=== PATIENT | female | born 1970 | race African-American/Black ===

== ENCOUNTER 2016-12-11 06:54 | Inpatient (IN) | payer BC ==
[2016-12-11] MEDS ORDERED: morphine CARPU-JECT 2 MG/1 ML DISP.SYRIN IVPUSH ONE ×2 (07:57→10:32)
[2016-12-11] MEDS ORDERED: SODIUM CHLORIDE 1,000 ML IV STA ×2 (07:57→12:55)
--- NOTE | 2016-12-11 07:57 | PDOC ---
History of Present Illness - General History Source: Patient, Old Records Exam Limitations: No Limitations - History of Present Illness Initial Comments: 12/11/16 08:11 Patient is a 46 year old female, past medical history of HTN nd sarcoidosis awho presents to the ED with right sided abdominal pain and vomiting for 8 hours. The patient reports 4 episodes of vomiting most recently one hour before presenting to the ER. She states that at 11 pm last night she felt abdominal pain that she thought might be hunger or gas. She ate a bowl of cereal to treat symptoms with no relief of pain and vomited up the cereal at midnight. The patient reports that her pain is an 8/10 in severity and exacerbated on palpation and by movement. The patient reports associated nausea and constipation. She denies any similar symptoms in the past and/or history of gallstones. <Glenroy Live - Last Filed: 12/11/16 10:11> <Lizet Brooks - Last Filed: 12/11/16 14:30> - General Chief Complaint: Pain, Acute Stated Complaint: ABDOMINAL PAIN Time Seen by Provider: 12/11/16 07:39 Past History <Glenroy Live - Last Filed: 12/11/16 10:11> - Past Medical History HTN: Yes Other medical history: sarcoidosis - Psycho/Social/Smoking Cessation Hx Suicidal Ideation: No Smoking History: Never smoked <Lizet Brooks - Last Filed: 12/11/16 14:30> - Past Medical History Allergies/Adverse Reactions: Allergies Allergy/AdvReac Type Severity Reaction Status Date / Time No Known Allergies Allergy Verified 12/11/16 07:09 Home Medications: Ambulatory Orders Lisinopril/Hydrochlorothiazide [Lisinopril-Hctz 10-12.5 mg Tab] 1 each PO DAILY 12/11/16 Review of Systems - Review of Systems Able to Perform ROS?: Yes Comments:: 12/11/16 08:12 GENERAL/CONSTITUTIONAL: No fever or chills. No weakness. HEAD, EYES, EARS, NOSE AND THROAT: No change in vision. No ear pain or discharge. No sore throat. CARDIOVASCULAR: No chest pain or shortness of breath. RESPIRATORY: No cough, wheezing, or hemoptysis. GASTROINTESTINAL: Yes nausea, vomiting, constipation, abdominal pain. No diarrhea. GENITOURINARY: No dysuria, frequency, or change in urination. MUSCULOSKELETAL: No joint or muscle swelling or pain. No neck or back pain. SKIN: No rash NEUROLOGIC: No headache, vertigo, loss of consciousness, or change in strength/ sensation. ENDOCRINE: No increased thirst. No abnormal weight change. HEMATOLOGIC/LYMPHATIC: No anemia, easy bleeding, or history of blood clots. ALLERGIC/IMMUNOLOGIC: No hives or skin allergy. <Glenroy Live - Last Filed: 12/11/16 10:11> *Physical Exam - Vital Signs Last Vital Signs Temp Pulse Resp BP Pulse Ox 98.5 F 76 19 175/101 98 12/11/16 07:11 12/11/16 07:11 12/11/16 07:11 12/11/16 07:11 12/11/16 07:11 - Physical Exam Comments: 12/11/16 08:12 GENERAL: Awake, alert, and fully oriented, in no acute distress HEAD: No signs of trauma EYES: PERRLA, EOMI, sclera anicteric, conjunctiva clear ENT: Auricles normal inspection, hearing grossly normal, nares patent, oropharynx clear without exudates. Dry Mucous membranes NECK: Normal ROM, supple, no lymphadenopathy, JVD, or masses LUNGS: Breath sounds equal, clear to auscultation bilaterally. No wheezes, and no crackles HEART: Regular rate and rhythm, normal S1 and S2, no murmurs, rubs or gallops ABDOMEN: (+)RUQ tenderness some guarding no rebound EXTREMITIES: Normal range of motion, no edema. No clubbing or cyanosis. No cords, erythema, or tenderness NEUROLOGICAL: Cranial nerves II through XII grossly intact. Normal speech SKIN: Warm, Dry, normal turgor, no rashes or lesions noted. <Glenroy Live - Last Filed: 12/11/16 10:11> - Vital Signs Last Vital Signs Temp Pulse Resp BP Pulse Ox 98.5 F 76 19 175/101 98 12/11/16 07:11 12/11/16 07:11 12/11/16 07:11 12/11/16 07:11 12/11/16 07:11 <Lizet Brooks - Last Filed: 12/11/16 14:30> ED Treatment Course - LABORATORY CBC & Chemistry Diagram: 12/11/16 07:56 12/11/16 07:56 - RADIOLOGY Radiograph Interpretation: 12/11/16 10:11 EXAM#: TYPE/EXAM: RESULT: [id number] US/ABDOMEN US -LIMITED ABDOMINAL ULTRASOUND WITH ATTENTION TO THE RIGHT UPPER QUADRANT: Clinical history: Right upper quadrant pain. Procedure: Grayscale ultrasound was utilized to evaluate the abdomen. Color Doppler was utilized to assist evaluation of cystic and vascular structures. Findings: The liver is mildly echogenic consistent with fatty infiltration, and measures 18 cm in longitudinal dimension. No hepatic mass is identified. There is no intrahepatic biliary ductal dilatation. The common bile duct measures 2.7 mm. The gallbladder contains multiple stones. There is no gallbladder wall thickening or pericholecystic fluid identified. The pancreas is unremarkable. The spleen is unremarkable. The right kidney is unremarkable. Visualized abdominal aorta demonstrates no evidence of abdominal aortic aneurysm. Visualized IVC is unremarkable. Main portal vein demonstrates normal directional flow and normal waveform pattern. IMPRESSION: Multiple gallstones. Reported By: Scotty Rosas MD 12/11/16 1008 <Glenroy Live - Last Filed: 12/11/16 10:11> - LABORATORY CBC & Chemistry Diagram: 12/11/16 07:56 12/11/16 07:56 <Lizet Brooks - Last Filed: 12/11/16 14:30> Medical Decision Making - Medical Decision Making 12/11/16 10:54 Sono results d/w patient. She still has some pain and nausea. Will give additional medication and reassess. If unable to tolerate PO, will admit. If able, will DC home with outpatient surg f/u. 12/11/16 12:54 Pt unable to tolerate PO challenge, still having pain. Will give additional morphine. Will admit to hospitalist service. <Lizet Brooks - Last Filed: 12/11/16 14:30> *DC/Admit/Observation/Transfer - Attestations Scribe Attestion: 12/11/16 08:12 Documentation prepared by Glenroy Live, acting as medical billing supervisor for Lizet Brooks MD. <Glenroy Live - Last Filed: 12/11/16 10:11> - Discharge Dispostion Admit: Yes <Lizet Brooks - Last Filed: 12/11/16 14:30> Diagnosis at time of Disposition: Biliary colic - Discharge Dispostion Condition at time of disposition: Stable - Referrals Referrals: Sara Orlando [Primary Care Provider] - Juan Glvoer [Staff Physician] - - Patient Instructions Printed Discharge Instructions: DI for Biliary Colic
[2016-12-11] MEDS ORDERED: morphine CARPU-JECT 2 MG/1 ML DISP.SYRIN ONE ×2 (08:06→10:33)
[2016-12-11 08:14] LABS: URINE APPEARANCE CLEAR; URINE BILIRUBIN NEGATIVE (NEGATIVE); URINE BLOOD NEGATIVE (NEGATIVE); URINE COLOR LTYELLOW; URINE GLUCOSE (UA) 1+ (NEGATIVE); URINE KETONE NEGATIVE (NEGATIVE); URINE LEUK ESTERASE NEGATIVE (NEGATIVE); URINE NITRITE NEGATIVE (NEGATIVE); URINE UROBILINOGEN NEGATIVE E.U./dl (0.2-1.0)
[2016-12-11 08:16] LABS: URINE PROTEIN 3+ (NEGATIVE)
[2016-12-11 08:17] LABS: BASOPHIL 0.2 % (0-2.0); MCH 20.2 pg (25.7-33.7); MCHC 31.7 g/dl (32.0-36.0); MEAN CELL VOLUME 63.6 fl (80-96); MEAN PLT VOLUME 7.4 fl (7.5-11.1); NEUTROPHILS 85.6 % (42.8-82.8); PLATELET COUNT 291 K/MM3 (134-434); RDW 17.7 % (11.6-15.6)
[2016-12-11 08:19] LABS: URINE HYALINE CAST 5 /lpf; URINE MUCUS RARE; URINE RBC 2 /hpf (0-3); URINE WBC 13 /hpf (3-5)
[2016-12-11 09:07] LABS: ANION GAP 13 (8-16); BILIRUBIN,TOTAL 0.3 mg/dL (0.2-1.0); CALCIUM 8.8 mg/dL (8.5-10.1); CO2 23 mmol/L (21-32); CREATININE 0.9 mg/dL (0.55-1.02); GLUCOSE,RANDOM 125 mg/dL (74-106); SGOT/AST 17 U/L (15-37); SGPT/ALT 21 U/L (12-78); TOT PROT 8.1 g/dl (6.4-8.2)
[2016-12-11 09:08] LABS: ALK PHOS 56 U/L (45-117)
[2016-12-11] MEDS ORDERED: ONDANSETRON 4 MG/2 ML VIAL IVPUSH ONE (10:32)
[2016-12-11] MEDS ORDERED: ONDANSETRON 4 MG/2 ML VIAL ONE (10:33)
[2016-12-11 11:26] LABS: ANISOCYTOSIS 1+; HYPOCHROMIA 2+; MICROCYTOSIS 2+; OVALOCYTES 1+; PLATELET ESTIMATE ADEQUATE (NORMAL); POIKILOCYTOSIS 1+; POLYCHROMASIA 1+; TARGET CELLS FEW
[2016-12-11] MEDS ORDERED: morphine CARPU-JECT 4 MG/1 ML DISP.SYRIN IVPUSH ONE (12:55)
[2016-12-11] MEDS ORDERED: morphine CARPU-JECT 4 MG/1 ML DISP.SYRIN ONE (13:50)
[2016-12-11] MEDS ORDERED: ONDANSETRON 4 MG/2 ML VIAL IVPUSH PRN (16:21)
--- NOTE | 2016-12-11 16:25 | HP ---
CHIEF COMPLAINT: "my abdomen hurts" PCP: HISTORY OF PRESENT ILLNESS: This is a 46 yo F with PMH of HTN and sarcoidosis (dx at [facility] biopsy 2004-stable ), who presents due to new onset RUQ abd pain and vomiting since last night. She has never had this kind of pain before. She has had many episodes of nonbloody, bilious vomiting, last one in Hospital a few minutes ago. Her pain is sharp, constant, 8/10, nonradiating and stabbing. Last normal BM was 1 day ago. She denies sick contacts, eating out or new medication. Her only home med is her BM pull that she could not take this AM due to vomiting, she states her BP is usually well controlled. She denies f/c, chest pain, h/a, dizziness, sob, diarrhea, melena, miley colored stools or hematochezia. In ED patient is afebrile and hypertensive 180/96. Her pain is alleviated with analgesics. ER course was notable for: (1)labs (2) abd US (3)IV NS, Morphine, zofran. Recent Travel: denies PAST MEDICAL HISTORY: as above PAST SURGICAL HISTORY: as above Social History: lives with son at home Smoking: denies Alcohol:denies Drugs: denies Family History: mother colon CA @ 65 yo Allergies No Known Allergies Allergy (Verified 12/11/16 07:09) HOME MEDICATIONS: Home Medications Medication Instructions Recorded Lisinopril/Hydrochlorothiazide 1 each PO DAILY 12/11/16 [Lisinopril-Hctz 10-12.5 mg Tab] REVIEW OF SYSTEMS CONSTITUTIONAL: Absent: fever, chills, diaphoresis, generalized weakness HEENT: Absent: rhinorrhea, nasal congestion, throat pain CARDIOVASCULAR: Absent: chest pain, syncope, palpitations RESPIRATORY: Absent: cough, shortness of breath, dyspnea with exertion GASTROINTESTINAL: Absent: diarrhea, melena, hematochezia GENITOURINARY: Absent: dysuria, flank pain MUSCULOSKELETAL: Absent: back pain, neck pain SKIN: Absent: rash, itching, pallor HEMATOLOGIC/IMMUNOLOGIC: Absent: easy bleeding, easy bruising, frequent infections ENDOCRINE: Absent: unexplained weight gain, unexplained weight loss NEUROLOGIC: Absent: headache, focal weakness or paresthesias, dizziness PSYCHIATRIC: Absent: anxiety, depression PHYSICAL EXAMINATION Vital Signs - 24 hr 12/11/16 15:11 Temperature 98.6 F Pulse Rate [ 82 Left Apical] Respiratory 16 Rate Blood Pressure 180/96 [Right] O2 Sat by Pulse 100 Oximetry (%) Laboratory Tests 12/11/16 12/11/16 12/11/16 07:56 07:56 07:56 WBC 9.0 Hgb 11.1 Hct 35.1 MCV 63.6 L MCHC 31.7 L RDW 17.7 H Plt Count 291 Neutrophils % 85.6 H Hypochromic-Microcytic 2+ Target Cells Few Sodium 138 Potassium 3.5 Chloride 102 Carbon Dioxide 23 Anion Gap 13 BUN 8 Creatinine 0.9 Creat Clearance w eGFR > 60 Random Glucose 125 H Calcium 8.8 Total Bilirubin 0.3 AST 17 ALT 21 Alkaline Phosphatase 56 Total Protein 8.1 Albumin 4.0 Lipase Urine Color Ltyellow Urine Appearance Clear Urine pH 7.0 Ur Specific [place] 1.020 Urine Protein 3+ H Urine Glucose (UA) 1+ H Urine Ketones Negative Urine Blood Negative Urine Nitrite Negative Urine Bilirubin Negative Urine Urobilinogen Negative Ur Leukocyte Esterase Negative Urine RBC 2 Urine WBC 13 Ur Epithelial Cells Few Hyaline Casts 5 Urine Mucus Rare Urine HCG, Qual Negative 12/11/16 07:57 WBC Hgb Hct MCV MCHC RDW Plt Count Neutrophils % Hypochromic-Microcytic Target Cells Sodium Potassium Chloride Carbon Dioxide Anion Gap BUN Creatinine Creat Clearance w eGFR Random Glucose Calcium Total Bilirubin AST ALT Alkaline Phosphatase Total Protein Albumin Lipase 82 Urine Color Urine Appearance Urine pH Ur Specific [place] Urine Protein Urine Glucose (UA) Urine Ketones Urine Blood Urine Nitrite Urine Bilirubin Urine Urobilinogen Ur Leukocyte Esterase Urine RBC Urine WBC Ur Epithelial Cells Hyaline Casts Urine Mucus Urine HCG, Qual GENERAL: Awake, alert, and fully oriented, in no acute distress. HEAD: Normal with no signs of trauma. EYES: Pupils equal, round and reactive to light, extraocular movements intact, sclera anicteric, conjunctiva clear. EARS, NOSE, THROAT: Moist mucous membranes. NECK: supple without JVD, or masses. LUNGS: Breath sounds equal, clear to auscultation bilaterally. No wheezes, and no crackles. HEART: Regular rate and rhythm, normal S1 and S2 ABDOMEN: Soft, not distended, not tympanic, globally reduced bowel sounds, mildly tender RUQ, no guarding, no rebound, no masses. No hepatomegaly or splenomegaly. Negative [place]. MUSCULOSKELETAL: No CVA tenderness. UPPER EXTREMITIES: 2+ pulses, warm, well-perfused. No peripheral edema. LOWER EXTREMITIES: 2+ pulses, warm, well-perfused. No calf tenderness. No peripheral edema. NEUROLOGICAL: Cranial nerves II-XII grossly intact. Normal speech. normal gait PSYCHIATRIC: Cooperative. Good eye contact. Appropriate mood and affect. SKIN: Warm, dry ASSESSMENT/PLAN: This is a 46 yo F with PMH of HTN and sarcoidosis (dx at [facility] biopsy 2004-stable ), who presents due to new onset RUQ abd pain and vomiting since last night. Acute cholecystitis -possible R sided colitis, r sided ovarian pathology, RLL lung pathology -duration too long to qualify as biliary colic -in stable condition, afebrile, no leukocytosis -GB US: clolelithiasis only -Liver enzynes, tbili wnl -lipase wnl -CXR -consider CT abd/pelvis with po/iv contrast -Unasyn 3 q 8h -NS@150 -Morphine 1q4h -zofran 4q4h -NPO -NGT PRN -Hunter consult -GI consult -INR, Type/screen HTN -hold lisinopril/HCTZ 10-12.5 Sarcoid -no acute symptoms -CXR FEN NS@150 lytes stable NPO SCD, PPI Dispo: med hunter Problem List - Problem (1) Abdominal pain Code(s): R10.9 - UNSPECIFIED ABDOMINAL PAIN (2) HTN (hypertension) Code(s): I10 - ESSENTIAL (PRIMARY) HYPERTENSION (3) Sarcoidosis Code(s): D86.9 - SARCOIDOSIS, UNSPECIFIED Visit type - Emergency Visit Emergency Visit: Yes ED Registration Date: 12/11/16 Care time: The patient presented to the Emergency Department on the above date and was hospitalized for further evaluation of their emergent condition. - New Patient This patient is new to me today: Yes Date on this admission: 12/11/16 - Critical Care Critical Care patient: No
[2016-12-11] MEDS ORDERED: ENALAPRILAT DIHYDRATE 1.25 MG/1 ML VIAL IVPB SCH (16:30)
--- NOTE | 2016-12-11 16:57 | PN ---
Teaching Attending Note Name of Resident: Vijaya Kong ATTENDING PHYSICIAN STATEMENT I saw and evaluated the patient. I reviewed the resident's note and discussed the case with the resident. I agree with the resident's findings and plan as documented. c/o having RUQ abdominal pain. Vital Signs Temperature 98.6 F 12/11/16 15:11 Pulse Rate 82 12/11/16 15:11 Respiratory Rate 16 12/11/16 15:11 Blood Pressure 180/96 12/11/16 15:11 O2 Sat by Pulse Oximetry (%) 100 12/11/16 15:11 Abdomen: RUQ pain on palpation. No rebound or guarding CBCD WBC 9.0 K/mm3 (4.0-10.0) 12/11/16 07:56 RBC 5.52 M/mm3 (3.60-5.2) H 12/11/16 07:56 Hgb 11.1 GM/dL (10.7-15.3) 12/11/16 07:56 Hct 35.1 % (32.4-45.2) 12/11/16 07:56 MCV 63.6 fl (80-96) L 12/11/16 07:56 MCHC 31.7 g/dl (32.0-36.0) L 12/11/16 07:56 RDW 17.7 % (11.6-15.6) H 12/11/16 07:56 Plt Count 291 K/MM3 (134-434) 12/11/16 07:56 MPV 7.4 fl (7.5-11.1) L 12/11/16 07:56 CMP Sodium 138 mmol/L (136-145) 12/11/16 07:56 Potassium 3.5 mmol/L (3.5-5.1) 12/11/16 07:56 Chloride 102 mmol/L (98-107) 12/11/16 07:56 Carbon Dioxide 23 mmol/L (21-32) 12/11/16 07:56 Anion Gap 13 (8-16) 12/11/16 07:56 BUN 8 mg/dL (7-18) 12/11/16 07:56 Creatinine 0.9 mg/dL (0.55-1.02) 12/11/16 07:56 Creat Clearance w eGFR > 60 (>60) 12/11/16 07:56 Random Glucose 125 mg/dL (74-106) H 12/11/16 07:56 Calcium 8.8 mg/dL (8.5-10.1) 12/11/16 07:56 Total Bilirubin 0.3 mg/dL (0.2-1.0) 12/11/16 07:56 AST 17 U/L (15-37) 12/11/16 07:56 ALT 21 U/L (12-78) 12/11/16 07:56 Alkaline Phosphatase 56 U/L (45-117) 12/11/16 07:56 Total Protein 8.1 g/dl (6.4-8.2) 12/11/16 07:56 Albumin 4.0 g/dl (3.4-5.0) 12/11/16 07:56 Current Medications Generic Name Dose Route Start Last Admin Trade Name Freq PRN Reason Stop Dose Admin Enalaprilat 1.25 mg 12/11/16 16:30 Vasotec Injection - IVPB Q6H-IV ZEUS Sodium Chloride 1,000 mls @ 150 mls/hr 12/11/16 16:30 Normal Saline - IV ASDIR ZEUS Ampicillin Sodium/Sulbactam 100 mls @ 200 mls/hr 12/11/16 18:00 Sodium 3 gm/ Sodium Chloride IVPB 12/12/16 02:29 Q8H-IV ZEUS Ampicillin Sodium/Sulbactam 100 mls @ 200 mls/hr 12/12/16 10:00 Sodium 3 gm/ Sodium Chloride IVPB Q8H-IV ZEUS Morphine Sulfate 1 mg 12/11/16 16:21 Morphine Injection - IVPUSH Q4H PRN PAIN Ondansetron HCl 4 mg 12/11/16 16:21 Zofran Injection IVPUSH 12/12/16 04:22 Q4H PRN NAUSEA AND/OR VOMITING Home Medications Medication Instructions Recorded Lisinopril/Hydrochlorothiazide 1 each PO DAILY 12/11/16 [Lisinopril-Hctz 10-12.5 mg Tab] GB US: cholelithiasis ASSESSMENT AND PLAN: Patient is a 46 year old female, past medical history of HTN nd sarcoidosis awho presents to the ED with right sided abdominal pain and vomiting for 8 hours. # Acute RUQ pain; Biliary colic . will place the patient on IV Unasyn for now until further order. ID consult for further ABx order , NS@150 ,Morphine 1gm q4h ,NPO, surgical consult , GI consult . #Hypertensive urgency due to RUQ pain IV vasotec ordered and morphine IV #Sarcoidosis no acute symptoms ;CXR ordered DVT Px: SCDs
[2016-12-11] MEDS: SODIUM CHLORIDE 1,000 ML IV SCH (17:58)
[2016-12-11] MEDS ORDERED: PT OWN MED DRAWER 7, Y5N ONE ×2 (18:12→22:09)
[2016-12-11] MEDS: AMPICILLIN NA/SULBACTAM NA 3 GM in SODIUM CHLORIDE 100 ML IVPB SCH (18:47)
[2016-12-11] MEDS: morphine CARPU-JECT 2 MG/1 ML DISP.SYRIN IVPUSH PRN (20:40)
[2016-12-11 22:24] LABS: INR 1.2 (0.82-1.09); PROTHROMBIN TIME (PATIENT) 13.3 SEC (9.98-11.88)
[2016-12-11] MEDS: ENALAPRILAT DIHYDRATE 1.25 MG/1 ML VIAL IVPB SCH (22:38)
[2016-12-12] MEDS: morphine CARPU-JECT 2 MG/1 ML DISP.SYRIN IVPUSH PRN ×4 (02:57→19:18)
[2016-12-12] MEDS: AMPICILLIN NA/SULBACTAM NA 3 GM in SODIUM CHLORIDE 100 ML IVPB SCH (03:04)
[2016-12-12] MEDS: ENALAPRILAT DIHYDRATE 1.25 MG/1 ML VIAL IVPB SCH ×4 (04:32→21:49)
[2016-12-12] MEDS: SODIUM CHLORIDE 1,000 ML IV SCH (07:02)
[2016-12-12 08:02] LABS: MCH 20.1 pg (25.7-33.7); MCHC 31.6 g/dl (32.0-36.0); MEAN CELL VOLUME 63.6 fl (80-96); MEAN PLT VOLUME 7.6 fl (7.5-11.1); PLATELET COUNT 294 K/MM3 (134-434); RDW 17.9 % (11.6-15.6); WHITE BLOOD COUNT 9.9 K/mm3 (4.0-10.0)
[2016-12-12 08:31] LABS: ALBUMIN 3.6 g/dl (3.4-5.0); ANION GAP 9 (8-16); BILIRUBIN,TOTAL 0.6 mg/dL (0.2-1.0); CALCIUM 8.3 mg/dL (8.5-10.1); CO2 27 mmol/L (21-32); CREATININE 0.8 mg/dL (0.55-1.02); GLUCOSE,RANDOM 92 mg/dL (74-106); PHOSPHOROUS 2.2 mg/dL (2.5-4.9); SGOT/AST 21 U/L (15-37); SGPT/ALT 21 U/L (12-78); TOT PROT 7.3 g/dl (6.4-8.2)
[2016-12-12 08:32] LABS: ALK PHOS 54 U/L (45-117)
[2016-12-12] MEDS ORDERED: PT OWN MED DRAWER 7, Y5N ONE ×4 (09:13→16:44)
[2016-12-12] MEDS ORDERED: PANTOPRAZOLE SODIUM 40 MG in SODIUM CHLORIDE 100 ML IVPB SCH (10:00)
--- NOTE | 2016-12-12 11:03 | PN ---
Progress Note (short form) - Note Progress Note: Patient continues to have pain, No fever or chills. Pain subsides post pain medication but stated that the minute she doesn't the pain medication, she gets the pain back. Vital Signs Temperature 99.3 F 12/12/16 09:22 Pulse Rate 74 12/12/16 09:22 Respiratory Rate 24 12/12/16 09:22 Blood Pressure 160/93 12/12/16 09:22 O2 Sat by Pulse Oximetry (%) 97 12/11/16 21:00 GENERAL: Awake, alert, and fully oriented, in no acute distress. HEAD: Normal with no signs of trauma. EYES: Pupils equal, round and reactive to light, extraocular movements intact, sclera anicteric, conjunctiva clear. EARS, NOSE, THROAT: Moist mucous membranes. NECK: supple without JVD, or masses. LUNGS: Breath sounds equal, clear to auscultation bilaterally. No wheezes/no crackles. HEART: Regular rate and rhythm, normal S1 and S2 ABDOMEN: Soft, positive for Reyez's sign , positive for tenderness RUQ, no guarding, no rebound, no masses. No hepatomegaly or splenomegaly. MUSCULOSKELETAL: No CVA tenderness. EXTREMITIES: 2+ pulses, warm, well-perfused. No peripheral edema. NEUROLOGICAL: Cranial nerves II-XII grossly intact. Normal speech. normal gait PSYCHIATRIC: Cooperative. Good eye contact. Appropriate mood and affect. SKIN: Warm, dry CBCD WBC 9.9 K/mm3 (4.0-10.0) 12/12/16 07:30 RBC 5.48 M/mm3 (3.60-5.2) H 12/12/16 07:30 Hgb 11.0 GM/dL (10.7-15.3) 12/12/16 07:30 Hct 34.8 % (32.4-45.2) 12/12/16 07:30 MCV 63.6 fl (80-96) L 12/12/16 07:30 MCHC 31.6 g/dl (32.0-36.0) L 12/12/16 07:30 RDW 17.9 % (11.6-15.6) H 12/12/16 07:30 Plt Count 294 K/MM3 (134-434) 12/12/16 07:30 MPV 7.6 fl (7.5-11.1) 12/12/16 07:30 CMP Sodium 139 mmol/L (136-145) 12/12/16 07:30 Potassium 3.6 mmol/L (3.5-5.1) 12/12/16 07:30 Chloride 103 mmol/L (98-107) 12/12/16 07:30 Carbon Dioxide 27 mmol/L (21-32) 12/12/16 07:30 Anion Gap 9 (8-16) 12/12/16 07:30 BUN 5 mg/dL (7-18) L D 12/12/16 07:30 Creatinine 0.8 mg/dL (0.55-1.02) 12/12/16 07:30 Creat Clearance w eGFR > 60 (>60) 12/12/16 07:30 Random Glucose 92 mg/dL (74-106) D 12/12/16 07:30 Calcium 8.3 mg/dL (8.5-10.1) L 12/12/16 07:30 Total Bilirubin 0.6 mg/dL (0.2-1.0) D 12/12/16 07:30 AST 21 U/L (15-37) D 12/12/16 07:30 ALT 21 U/L (12-78) 12/12/16 07:30 Alkaline Phosphatase 54 U/L (45-117) 12/12/16 07:30 Total Protein 7.3 g/dl (6.4-8.2) 12/12/16 07:30 Albumin 3.6 g/dl (3.4-5.0) 12/12/16 07:30 Home Medications Medication Instructions Recorded Lisinopril/Hydrochlorothiazide 1 each PO DAILY 12/11/16 [Lisinopril-Hctz 10-12.5 mg Tab] Current Medications Generic Name Dose Route Start Last Admin Trade Name Freq PRN Reason Stop Dose Admin Enalaprilat 1.25 mg 12/11/16 19:04 12/12/16 09:28 Vasotec Injection - IVPB 1.25 mg Q6H-IV ZEUS Administration Sodium Chloride 1,000 mls @ 150 mls/hr 12/11/16 16:30 12/12/16 07:02 Normal Saline - IV 150 mls/hr ASDIR ZEUS Administration Morphine Sulfate 1 mg 12/11/16 16:21 12/12/16 11:11 Morphine Injection - IVPUSH 1 mg Q4H PRN Administration PAIN Pantoprazole Sodium 40 mg 12/12/16 10:00 12/12/16 11:18 Protonix 40mg Ivpb (Pre-Docked) IVPB 40 mg DAILY ZEUS Administration GB US: clolelithiasis ASSESSMENT AND PLAN: Patient is a 46 year old female, past medical history of HTN nd sarcoidosis awho presents to the ED with right sided abdominal pain and vomiting for 8 hours. # Acute RUQ pain , Biliary colic cannot r/o cholecystitis . as per ID to discontinue Unasyn since patient has no fever or chills, ID consult appreciated , will continue with d5.1/2 NS at @150 ,Morphine 1q4h ,zofran 4q4h. continue NPO , for possible surgery in am by . GI consult appreciated , #HTN Urgency most likely due to pain , better than yesterday. will discontinue 0.9ns since BP is elevated, will start on d51/2NS at 100cc/hr. #Sarcoidosis no acute symptoms ; CXR ordered. DVT Px: SCDs Visit type - Emergency Visit Emergency Visit: Yes ED Registration Date: 12/11/16 Care time: The patient presented to the Emergency Department on the above date and was hospitalized for further evaluation of their emergent condition. - New Patient This patient is new to me today: No - Critical Care Critical Care patient: No
[2016-12-12] MEDS: PANTOPRAZOLE SODIUM 40 MG/100 ML PRE-DOCKED IVPB SCH (11:18)
[2016-12-12] MEDS ORDERED: HYDROmorphone HCL CARPU-JECT 1 MG/1 ML DISP.SYRIN IVPB ONE (11:20)
--- NOTE | 2016-12-12 12:53 | CONSULT ---
Consult Consult Specialty:: surgery Reason for Consultation:: Abdominal pain - History of Present Illness Chief Complaint: RUQ pain History of Present Illness: 46 yr old female prsents with 2 day history of RUQ abdominal pain associated with nausea and vomiting. Denies fever or chills. Patient reports thsis is the first episode. - Past Medical History ...LMP: 11/22/16 ...: No - Alcohol/Substance Use Hx Alcohol Use: No - Smoking History Smoking history: Never smoked Home Medications - Allergies Allergies/Adverse Reactions: Allergies Allergy/AdvReac Type Severity Reaction Status Date / Time No Known Allergies Allergy Verified 12/11/16 07:09 - Home Medications Home Medications: Ambulatory Orders Lisinopril/Hydrochlorothiazide [Lisinopril-Hctz 10-12.5 mg Tab] 1 each PO DAILY 12/11/16 Physical Exam Vital Signs: Vital Signs Temperature 99.3 F 12/12/16 09:22 Pulse Rate 74 12/12/16 09:22 Respiratory Rate 24 12/12/16 09:22 Blood Pressure 160/93 12/12/16 09:22 O2 Sat by Pulse Oximetry (%) 94 L 12/12/16 11:00 Labs: CBC, BMP 12/12/16 07:30 12/12/16 07:30 Imaging - Results Ultrasound: Report Reviewed, Image Reviewed Problem List - Problems (1) Abdominal pain Code(s): R10.9 - UNSPECIFIED ABDOMINAL PAIN (2) Biliary colic Code(s): K80.50 - CALCULUS OF BILE DUCT W/O CHOLANGITIS OR CHOLECYST W/O OBST Assessment/Plan 46 yr old with biliary colic no evidence of acute cholecystitis. HJowever patient continues to experience pain despite being NPO if no improvement by tomorrow will consider inpatient cholecystectomy
[2016-12-12] MEDS ORDERED: AMPICILLIN NA/SULBACTAM NA 3 GM in SODIUM CHLORIDE 100 ML IVPB SCH (14:00)
--- NOTE | 2016-12-12 14:05 | PN ---
Progress Note (short form) - Note Progress Note: GI CONSULTATION: PLEASE SEE FULL DICTATION IN BRIEF 46F HTN/SARCOIDOSIS BILIARY COLIC MULTIPLE GALLSTONES APPEARS COMFORTABLE, BUT STILL WITH PAIN, UNABLE TO EAT AND REQ. PAIN MEDS RISE IN WBC'S POSSIBLE CHOLECYSTITIS NORMAL LFT'S AND BILE DUCTS OMN IMAGING NO NEED FOR PRE-OP BILIARY IMAGING CONTINUE CURRENT RX CONSIDER HIDA SCAN IF FEVER/WBC/PAIN, CONSIDER L.C. THANKS MD DARIELA
--- NOTE | 2016-12-12 14:20 | PN ---
Progress Note (short form) - Note Progress Note: ID consult dictated imp/reccd biliary colic no fevers or chills normal WBC normal LFTS no gallbladder wall thickening or fluid no ductal dilatation she continues to have pain despite being NPO plan for lap choly in am no need for antibiotics at this time if she develops fever/chills would get blood cultures and start ceftriaxone and flagyl
--- NOTE | 2016-12-12 15:00 | CONS ---
DATE OF CONSULTATION: REQUESTING PHYSICIAN: Hospitalist service. HISTORY: This is a 46-year-old woman with past medical history of hypertension. She came to the emergency room with vomiting, right-sided abdominal pain. This had started suddenly the night before admission. There was no history of any fevers or chills. She had no diarrhea. She had never had this in the past. There is no history of any travel. She lives at home with her family. There are no sick contacts. She has no diarrhea. PAST MEDICAL HISTORY: Notable hypertension. PAST SURGICAL HISTORY: . She has a scar what appears to be a mediastinoscopy for sarcoid, which she tells me is quiescent. ALLERGIES: She has no known drug allergies. MEDICATIONS: Lisinopril, hydrochlorothiazide as an outpatient. SOCIAL HISTORY: She lives with her family. 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 She has no pets. There is no history of any travel. REVIEW OF SYSTEMS: There is no headache. No fevers or chills. She has nausea and vomiting. There is no diarrhea. PHYSICAL EXAMINATION: Vital Signs: T-max 99.3, pulse 99, blood pressure 157/99, respiratory rate 20. HEENT: She is normocephalic. Eyes are anicteric. Neck: Supple. Lungs: Clear to auscultation. Heart: Regular rate and rhythm. Abdomen: She has right upper quadrant pain on palpation. She has no rebound or guarding. Extremities: Without edema. LABORATORY DATA: White count is 9.9, hemoglobin 11, platelets 294, INR 1.2, BUN 5, creatinine 0.8. LFTs are normal. Urinalysis is negative for leukocyte esterase. Chest x-ray is negative for infiltrate. She has on ultrasound a mildly echogenic liver. She has no intrahepatic biliary dilatation. She has a normal CBD. She has multiple stones. No gallbladder wall thickening or pericholecystic fluid. In summary, this is a 46-year-old woman with hypertension admitted with biliary colic. No fevers or chills. Normal white count, normal LFTs. No gallbladder wall thickening or fluid. No ductal dilatation. She continues to have pain despite being n.p.o. Plan is for laparoscopic cholecystectomy in the a.m. No need for antibiotics at this time. If she does develop fever or signs or symptoms of infection related to the gallbladder, it would be reasonable to treat her with ceftriaxone and Flagyl. JAVON SOTO M.D. [id number]
--- NOTE | 2016-12-12 15:04 | CONS ---
GASTROENTEROLOGY CONSULTATION DATE OF CONSULTATION: 12/12/2016 DICTATED BY: Sandy Durand MD REFERRING PHYSICIAN: I was asked by Dr. Kathryn Borrego to evaluate the patient for abdominal pain. HISTORY OF PRESENT ILLNESS: The patient is a 46-year-old -[place] woman with a past medical history that is really only significant for hypertension. The patient has not had significant GI issues in the past, and she tells me that she comes in with somewhat acute onset of right upper quadrant and epigastric pain associated with nausea/vomiting. She denies fevers, chills or sweats. She had some pains like this a couple weeks ago and thought it was a little bug that she had. At that time, the cramping was hypogastric, and she thought that it was related to a young relative of hers who was sick, but nothing really brewed from that, and she had done well, and now she has had this attack. She is not really sure what had brought it on. She really has not had other GI type of issues. She is obese. She has no known drug allergies, and she was not on any new medication. She says the pain does not really go into the back. It does go a little bit to the right side, however. At first, she thought it was just a gas pain or a cramp. She ate some cereal to see if the symptoms would resolve, but she ended up vomiting, and the pain became real severe. She came to the hospital. PAST MEDICAL HISTORY: She was unaware of having gallbladder disease. There is no family history of such. She denies any history of any liver or pancreatic disease. Apparently, she does have past medical history of sarcoidosis and hypertension. She is status post . ALLERGIES: She has no known drug allergies. Was not on any significant medication except for anti-hypertensive medication. SOCIAL HISTORY: She does not smoke or drink. She is single, and she works as a litigation legal assistant. FAMILY HISTORY: The family history is significant only in the mother who has had colon cancer. PHYSICAL EXAMINATION: When she came in, she was afebrile. Currently, she tells me that has been feeling better. She has been getting pain medication and antibiotics. She has seen the surgeon and is supposed to have her gallbladder removed. She has not had any further vomiting. She still denies fevers, chills or sweats, and she has not moved her bowels in 2 days. Usually, she goes pretty regularly. Vital signs: Currently, she is afebrile, and her vital signs are stable General appearance: She is very comfortable in appearance, moving about easily. HEENT: Sclera anicteric. Neck is supple. Heart: Her heart rate is 75-90, her blood pressure 157/99. Abdomen: Her abdomen is a little overweight , but is soft symmetric. There are really no scars. There is tenderness to palpation in the epigastric and right upper quadrant region, but it is not firm. It is not rigid, and there is no rebound. There is no guarding. LAB DATA: Notable in that her INR is normal. When she came in, her liver enzymes were perfectly normal with an AST of 17, ALT of 21, alkaline phosphatase 56, total protein of 8, albumin of 4, and her SMA 7 is all completely within normal limits. Her white count on admission was 9. Today, it is 9.9. Her hemoglobin and hematocrit is 11/34. MCV is 65, 294,000 platelets. As noted, she did have the sonogram, which did reveal the presence of multiple gallstones. Otherwise, there is no evidence of any ductal dilatation. There is no evidence of any pancreatic or hepatic disease. There is some fatty liver, and the liver is borderline upper limit of normal in size. There is no gallbladder wall thickening or pericholecystic fluid or free fluid noted. IMPRESSION: The patient is a 46-year-old woman with history of hypertension and sarcoidosis who is overweight. Has had no GI issues in the past. Has a family history of colon cancer, who comes in with subacute onset of right upper quadrant and epigastric pain after a meal. Findings are likely consistent with biliary colic. She has had a prolonged episode and probable cholecystitis. She is very tender to palpation in the right upper quadrant. She has multiple gallstones. PLAN: It appears the plan is for her to undergo a laparoscopic cholecystectomy. At the present time, there is no indication to warrant a preoperative imaging of the biliary tree. We will continue to be available to manage this patient, as needed. Thank you kindly. SANDY DURAND M.D. MICHELLE/[id number]
[2016-12-12] MEDS ORDERED: SODIUM CHLORIDE 0.45% 1,000 ML IV SCH (15:15)
[2016-12-12] MEDS: SODIUM CHLORIDE 0.45%/POT 1,000 ML IV SCH (16:25)
[2016-12-12] MEDS ORDERED: amLODIPine BESYLATE 10 MG TABLET (FP) PO ONE (17:56)
[2016-12-12] MEDS ORDERED: HYDROCHLOROTHIAZIDE 12.5 MG CAPSULE (FP) PO ONE (20:05)
[2016-12-12] MEDS ORDERED: morphine CARPU-JECT 2 MG/1 ML DISP.SYRIN IVPUSH ONE (22:20)
[2016-12-12] MEDS: METRONIDAZOLE 500 MG PREMIXED 100 ML IVPB SCH (23:53)
[2016-12-12] MEDS: cefTRIAXone 2 GM/100 ML BAG (PRE-DOCKED) IVPB SCH (23:54)
[2016-12-13] MEDS: METRONIDAZOLE 500 MG PREMIXED 100 ML IVPB SCH ×3 (01:11→17:38)
[2016-12-13] MEDS: ENALAPRILAT DIHYDRATE 1.25 MG/1 ML VIAL IVPB SCH (01:59)
[2016-12-13] MEDS ORDERED: ACETAMINOPHEN 325 MG TABLET (FP) PO ONE (03:00)
[2016-12-13] MEDS: SODIUM CHLORIDE 0.45%/POT 1,000 ML IV SCH ×2 (03:51→16:45)
[2016-12-13] MEDS: morphine CARPU-JECT 2 MG/1 ML DISP.SYRIN IVPUSH PRN ×5 (03:51→22:29)
[2016-12-13 06:36] LABS: SERUM IRON 83 ug/dL (27-159); TOTAL IRON BINDING CAPACITY 363 ug/dL (250-450); UIBC 280 ug/dL (131-425)
[2016-12-13] MEDS: LISINOPRIL 10 MG TABLET (FP) PO SCH ×2 (08:09→09:21)
[2016-12-13] MEDS: HYDROCHLOROTHIAZIDE 12.5 MG CAPSULE (FP) PO SCH ×2 (08:09→09:21)
[2016-12-13] MEDS: PANTOPRAZOLE SODIUM 40 MG/100 ML PRE-DOCKED IVPB SCH (09:14)
--- NOTE | 2016-12-13 10:09 | PN ---
Progress Note (short form) - Note Progress Note: She remains tender in the upper abd. Slight nausea. No emesis. Vital Signs Period Temp Pulse Resp BP Sys/Sutton Pulse Ox Last 24 Hr 98.4 F-99.9 F 76-99 16-24 133-180/88-108 94-95 PE: GEN: appears uncomfortable ABD: soft, RUQ tenderess with palpation. No rebound. A/P: 46 yo female with upper abd pain, Gallstones She remains afebile with US finding of GS and no evidence of acute feli. I spoke with Dr. Davidson today and ordered repeat lab values. Repeat imaging of the ultrasound today as per the medical service. A CT scan with oral/iv contrast could be obtained but there is concern for underlying kidney disease. Her BUN/CRET values are within normal range but her UA shows 3+ proteinuria with Casts. Also HIDA scan could be obtained if indicated in the am. The medical team will obtain nephrology consult and further imaging studies will be considered following her lab work today. Recommend to continue npo/iv hydration and IV abx Her IV pain medication dose was increased
[2016-12-13] MEDS: cefTRIAXone 2 GM/100 ML BAG (PRE-DOCKED) IVPB SCH (11:08)
[2016-12-13] MEDS ORDERED: POTASSIUM PHOSPHATE 30 MM in DEXTROSE 5%-WATER - 500 ML IVPB ONE (11:30)
[2016-12-13 11:52] LABS: CALCIUM 8.5 mg/dL (8.5-10.1); CREATININE 0.8 mg/dL (0.55-1.02)
[2016-12-13 11:56] LABS: ALBUMIN 3.4 g/dl (3.4-5.0); BILIRUBIN,DIRECT 0.1 mg/dL (0.0-0.2); BILIRUBIN,TOTAL 0.6 mg/dL (0.2-1.0); TOT PROT 7.5 g/dl (6.4-8.2)
--- NOTE | 2016-12-13 12:11 | PN ---
Progress Note (short form) - Note Progress Note: continues with RUQ pain some fever last night to 99.9 blood cultues sent, rocephin and flagyl started afebrile today Vital Signs Period Temp Pulse Resp BP Sys/Sutton Pulse Ox Last 24 Hr 98.4 F-99.9 F 76-99 16-24 133-180/88-108 95-96 cor-rrr lungs clear abd soft, +RUQ discomfort ext no edema CBC, BMP 12/12/16 07:30 12/13/16 11:00 a/p biliary colic- for repeat imaging per surgery continue ceftriaxone/flagyl htn- bp improved today
--- NOTE | 2016-12-13 12:15 | PN ---
Physical Exam: SUBJECTIVE: Patient seen and examined Patient restign in bed. Afebrile and hemodynamically stable. complains of mild nausea and 7/10 RUQ pain that is alleviated to 4/10 my analgesia. Unable to walk in hallway because of pain. Denies vomiting, f/c. constipated. No chest pain, sob, leg pain, back pain OBJECTIVE: Vital Signs Period Temp Pulse Resp BP Sys/Sutton Pulse Ox Last 24 Hr 98.4 F-99.9 F 76-99 16-24 133-180/88-108 95-96 GENERAL: Awake, alert, and fully oriented, in no acute distress. HEAD: Normal with no signs of trauma. EYES: Pupils equal, round and reactive to light, extraocular movements intact, sclera anicteric, conjunctiva clear. EARS, NOSE, THROAT: Moist mucous membranes. NECK: supple without JVD, or masses. LUNGS: Breath sounds equal, clear to auscultation bilaterally. No wheezes, and no crackles. HEART: Regular rate and rhythm, normal S1 and S2 ABDOMEN: Soft, not distended, not tympanic, globally reduced bowel sounds, mildly tender RUQ, no guarding, no rebound, no masses. No hepatomegaly or splenomegaly. Negative [place]. MUSCULOSKELETAL: No CVA tenderness. UPPER EXTREMITIES: 2+ pulses, warm, well-perfused. No peripheral edema. LOWER EXTREMITIES: 2+ pulses, warm, well-perfused. No calf tenderness. No peripheral edema. NEUROLOGICAL: Cranial nerves II-XII grossly intact. Normal speech. normal gait PSYCHIATRIC: Cooperative. Good eye contact. Appropriate mood and affect. SKIN: Warm, dry Laboratory Results - last 24 hr 12/12/16 12/13/16 12/13/16 07:30 11:00 11:00 Sodium 136 Potassium 3.5 Chloride 100 Carbon Dioxide 24 Anion Gap 12 BUN 7 D Creatinine 0.8 Random Glucose 85 Calcium 8.5 Iron 83 TIBC 363 Iron Saturation 23 Total Bilirubin 0.6 Direct Bilirubin 0.1 AST 20 ALT 21 Alkaline Phosphatase 58 Total Protein 7.5 Albumin 3.4 Active Medications Generic Name Dose Route Start Last Admin Trade Name Freq PRN Reason Stop Dose Admin Ceftriaxone Sodium 2 gm 12/12/16 22:15 12/13/16 11:08 Rocephin 2gm Ivpb (Pre-Docked) IVPB 2 gm DAILY ZEUS Administration Protocol Potassium Chloride/Sodium Chloride 1,000 mls @ 100 mls/hr 12/12/16 15:15 03:51 1/2ns+20meq Kcl IV 12/14/16 01:14 100 mls/hr ASDIR ZEUS Administration Metronidazole 100 mls @ 100 mls/hr 12/12/16 22:15 12/13/16 10:04 Flagyl 500mg Premixed Ivpb - IVPB 100 mls/hr Q8H-IV ZEUS Administration Potassium Phosphate 30 mm/ 510 mls @ 63.75 mls/hr 12/13/16 11:30 Dextrose IVPB 12/13/16 19:29 ONCE ONE Lisinopril 10 mg 12/13/16 10:00 12/13/16 09:21 Prinivil PO Not Given DAILY ZEUS Morphine Sulfate 2 mg 12/13/16 10:17 12/13/16 11:23 Morphine Injection - IVPUSH 2 mg Q3H PRN Administration PAIN Pantoprazole Sodium 40 mg 12/12/16 10:00 12/13/16 09:14 Protonix 40mg Ivpb (Pre-Docked) IVPB 40 mg DAILY ZEUS Administration ASSESSMENT/PLAN: This is a 46 yo F with PMH of HTN and sarcoidosis (dx at [facility] biopsy 2004-stable ), who presents due to new onset RUQ abd pain and vomiting since last night. Biliary Colic -in stable condition, afebrile, no leukocytosis -initial GB US: clolelithiasis only -initial Liver enzynes, tbili wnl -initial lipase wnl -initial CXR wnl -order todays labs -repeat GB US -consider CT abd/pelvis with po/iv contrast -continue rocephin/flagyl day 2 -NS@100 -Morphine 1q4h -zofran 4q4h -NPO -Hunter consult -GI consult -INR, Type/screen -anticipate lap feli tomorrow HTN -hold lisinopril/HCTZ 10-12.5 -lisinopril 10 PO d Sarcoid -no acute symptoms -CXR FEN NS@100 lytes stable NPO SCD, PPI Dispo: med hunter Problem List - Problems (1) Abdominal pain Code(s): R10.9 - UNSPECIFIED ABDOMINAL PAIN (2) HTN (hypertension) Code(s): I10 - ESSENTIAL (PRIMARY) HYPERTENSION (3) Sarcoidosis Code(s): D86.9 - SARCOIDOSIS, UNSPECIFIED Visit type - Emergency Visit Emergency Visit: Yes ED Registration Date: 12/11/16 Care time: The patient presented to the Emergency Department on the above date and was hospitalized for further evaluation of their emergent condition. - New Patient This patient is new to me today: No - Critical Care Critical Care patient: No - Discharge Referral Referred to [facility] Med P.C.: No
[2016-12-13] MEDS ORDERED: GLYCERIN 1 RECTAL SUPPOSITORY, ADULT RC ONE (12:32)
--- NOTE | 2016-12-13 12:53 | PN ---
Teaching Attending Note Name of Resident: Vijaya Kong ATTENDING PHYSICIAN STATEMENT I saw and evaluated the patient. I reviewed the resident's note and discussed the case with the resident. I agree with the resident's findings and plan as documented. Patient continues to have RUQ pain , No fever or chills, no shortness of breath. Vital Signs Period Temp Pulse Resp BP Sys/Sutton Pulse Ox Last 24 Hr 97.4 F-98.9 F 89-100 16-22 133-154/82-108 96 12/12/16 12/13/16 12/13/16 07:30 11:00 11:00 Sodium 136 Potassium 3.5 Chloride 100 Carbon Dioxide 24 Anion Gap 12 BUN 7 D Creatinine 0.8 Random Glucose 85 Calcium 8.5 Iron 83 TIBC 363 Iron Saturation 23 Total Bilirubin 0.6 Direct Bilirubin 0.1 AST 20 ALT 21 Alkaline Phosphatase 58 Total Protein 7.5 Albumin 3.4 Laboratory Tests 12/12/16 07:30 Calcium 8.3 L Phosphorus 2.2 L Magnesium 2.0 AST 21 D ALT 21 Alkaline Phosphatase 54 Total Protein 7.3 Albumin 3.6 Lipase 86 Laboratory Tests 12/11/16 07:56 Urine Color Ltyellow Urine Appearance Clear Urine pH 7.0 Ur Specific [place] 1.020 Urine Protein 3+ H Urine Glucose (UA) 1+ H Urine Ketones Negative Urine Blood Negative Urine Nitrite Negative Urine Bilirubin Negative Urine Urobilinogen Negative Ur Leukocyte Esterase Negative Urine RBC 2 Urine WBC 13 Ur Epithelial Cells Few Physical exam,rOS, as per resident. GB US: clolelithiasis ASSESSMENT AND PLAN: Patient is a 46 year old female, past medical history of HTN nd sarcoidosis awho presents to the ED with right sided abdominal pain and vomiting for 8 hours. # Acute RUQ pain continues , Biliary colic cannot r/o cholecystitis will repeat US since pain is not subsided. discussed with Faye Summers ,surgical PA. as per ID to continue with Flagyl/Rocephin IV. continue NPO, discussed with .will do hida scan in am. GI consult appreciated, #HTN Urgency most likely due to pain , better than yesterday. will discontinue 0.9ns since BP is elevated, will start on d51/2NS at 100cc/hr. #Sarcoidosis no acute symptoms ; CXR ordered. DVT Px: SCDs
--- NOTE | 2016-12-13 13:29 | CON.NEP ---
Consult Consult Specialty:: Nephrology Referred by:: Dr Borrego Reason for Consultation:: Proteinuria - History of Present Illness Chief Complaint: Right Upper quadrant pain History of Present Illness: Pt is a 46 yo AA female with H/O HTN since an episode of pre eclampsia 13 years ago when she was also found to have sarcoidosis that has not been active over the last few years. 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 Gall stones but no CBD dilatation noted Repeat sonogram today shows a normal left kidney as well and GB wall thickening that is new from yesterday - History Source History Provided By: Patient, Medical Record - Past Medical History ...LMP: 11/22/16 ...: No - Alcohol/Substance Use Hx Alcohol Use: No - Smoking History Smoking history: Never smoked Home Medications - Allergies Allergies/Adverse Reactions: Allergies Allergy/AdvReac Type Severity Reaction Status Date / Time No Known Allergies Allergy Verified 12/11/16 07:09 - Home Medications Home Medications: Ambulatory Orders Lisinopril/Hydrochlorothiazide [Lisinopril-Hctz 10-12.5 mg Tab] 1 each PO DAILY 12/11/16 Nephrology Consult - Height Height: 5 ft 2 in - Weight Weight: 206 lb 12.8 oz - BMI Body Mass Index (BMI): 37.8 - Lab Results CBC,BMP: CBC, BMP 12/12/16 07:30 12/13/16 11:00 Laboratory Tests 12/12/16 07:30 Calcium 8.3 L Phosphorus 2.2 L Magnesium 2.0 AST 21 D ALT 21 Alkaline Phosphatase 54 Total Protein 7.3 Albumin 3.6 Lipase 86 U/A: Laboratory Tests 12/11/16 07:56 Urine Color Ltyellow Urine Appearance Clear Urine pH 7.0 Ur Specific [place] 1.020 Urine Protein 3+ H Urine Glucose (UA) 1+ H Urine Ketones Negative Urine Blood Negative Urine Nitrite Negative Urine Bilirubin Negative Urine Urobilinogen Negative Ur Leukocyte Esterase Negative Urine RBC 2 Urine WBC 13 Ur Epithelial Cells Few Anion Gap: Anion Gap Anion Gap 12 (8-16) 12/13/16 11:00 - Imaging Chest X-ray: Report Reviewed (Raised right hemidiaphram) Ultrasound: Report Reviewed EKG: Other (No available) - Physical Examination Vital Signs: Vital Signs Temperature 98.4 F 12/13/16 08:28 Pulse Rate 98 H 12/13/16 11:14 Respiratory Rate 20 12/13/16 11:14 Blood Pressure 138/90 12/13/16 11:14 O2 Sat by Pulse Oximetry (%) 96 12/13/16 08:20 Constitutional: Yes: No Distress Cardiovascular: Yes: S1, S2, Other (SSEM). No: JVD Respiratory: Yes: CTA Bilaterally Gastrointestinal: Yes: Soft, Tenderness, Other (RUQ tenderness without rebound) Renal/: Yes: CVA Tenderness - Right. No: CVA Tenderness - Left Edema: No Neurological: Yes: Alert, Oriented Assessment/Plan Impression RUQ pain in pt with gall stones and a thickened GB wall Proteinuria degree of which to be clarified in this pt with Sarcoidosis- Not that the urine was a concentrated sample and it contained epithelial cells HTN borderline line in pt with pain Plan UA and urine for Pro/Cr ratio IVF Replacing PO4 Analgesia Replacing PO4 HIDA Scan as ordered Consider Ct Scan of the Abd and pelvis with oral contrast only but if felt that the benefit outweighs risks of the IV contrast and felt to be essential to further evaluate this acute abdominal pain then would proceed with the IV contrast rather than delay till the degree of proteinuria is clarified. Hold the Lisinopril if IV contrast to be given. EKG if not done since admission Discussed with the Hospitalist and Resident Thank You Will follow Dr Nunez.
[2016-12-13 13:30] VITALS: BMI 37.8
--- NOTE | 2016-12-13 14:23 | PN ---
GI Progress Note Subjective: GI F/U NOTE: PT STILL HAVING EPIGASTRIC / RUQ PAIN AND NAUSEA NO VOMITING; NO F/C/S MODERATE DISCOMFORT NOT EATING WAS TO HAVE L.C THIS AM ON ABX - Objective Vital Signs: Vital Signs Temperature 98.4 F 12/13/16 08:28 Pulse Rate 98 H 12/13/16 11:14 Respiratory Rate 20 12/13/16 11:14 Blood Pressure 138/90 12/13/16 11:14 O2 Sat by Pulse Oximetry (%) 96 12/13/16 08:20 Constitutional: Well Nourished, Calm Eyes: Yes: WNL (oBESE, HPOACTIVE BS, SOFT TENDER TO PALPATION IN THE RUQ/ EPIGASTRIC REGION) Labs: CBC, BMP 12/12/16 07:30 12/13/16 11:00 INR, PTT INR 1.20 (0.82-1.09) H 12/11/16 18:05 Assessment/Plan PT APPEARS CLINICALLY AND RADIOGRAPHICALLY SLIGHTLY WORSE TODAY NO FEVERS, BUT MODERATE PAIN ON ABX THICKENED GB WALL WITH STONES UNCLEAR UTILITY OF FURTHER IMAGING AT THIS TIME WILL DEFER TO SURGICAL TEAM AGREE WTIH CHOLECYSTECTOMY F/U LABS/ NPO/IV ABX D/W MEDICAL TEAM MD DARIELA
[2016-12-13 15:46] LABS: URINE APPEARANCE CLEAR; URINE BILIRUBIN NEGATIVE (NEGATIVE); URINE BLOOD 1+ (NEGATIVE); URINE COLOR LTYELLOW; URINE GLUCOSE (UA) NEGATIVE (NEGATIVE); URINE KETONE 2+ (NEGATIVE); URINE LEUK ESTERASE TRACE (NEGATIVE); URINE NITRITE NEGATIVE (NEGATIVE); URINE PROTEIN 1+ (NEGATIVE); URINE UROBILINOGEN NEGATIVE E.U./dl (0.2-1.0)
[2016-12-13 15:51] LABS: URINE MUCUS RARE; URINE RBC 1 /hpf (0-3); URINE WBC 15 /hpf (3-5)
[2016-12-13] MEDS: amLODIPine BESYLATE 10 MG TABLET (FP) PO SCH (22:27)
[2016-12-14] MEDS: METRONIDAZOLE 500 MG PREMIXED 100 ML IVPB SCH ×6 (01:52→21:32)
[2016-12-14] MEDS: morphine CARPU-JECT 2 MG/1 ML DISP.SYRIN IVPUSH PRN ×4 (01:54→21:32)
[2016-12-14 06:54] LABS: BASOPHIL 0.3 % (0-2.0); EOSINOPHIL 1.8 % (0-4.5); MCHC 31.4 g/dl (32.0-36.0); MEAN CELL VOLUME 63.6 fl (80-96); MEAN PLT VOLUME 8.5 fl (7.5-11.1); PLATELET COUNT 286 K/MM3 (134-434); RDW 17.7 % (11.6-15.6)
[2016-12-14 07:21] LABS: ALBUMIN 3.3 g/dl (3.4-5.0); ALK PHOS 54 U/L (45-117); ANION GAP 11 (8-16); BILIRUBIN,TOTAL 0.6 mg/dL (0.2-1.0); CALCIUM 8.6 mg/dL (8.5-10.1); CO2 26 mmol/L (21-32); CREATININE 0.8 mg/dL (0.55-1.02); GLUCOSE,RANDOM 89 mg/dL (74-106); MAGNESIUM 1.9 mg/dL (1.8-2.4); PHOSPHOROUS 2.8 mg/dL (2.5-4.9); SGOT/AST 12 U/L (15-37); SGPT/ALT 18 U/L (12-78)
[2016-12-14] MEDS ORDERED: POTASSIUM CHLORIDE TABS 20 MEQ TABLET.ER (FP) PO ONE (07:45)
--- NOTE | 2016-12-14 09:54 | PN ---
Physical Exam: SUBJECTIVE: Patient seen and examined Patient resting in bed. Afebrile and hemodynamically stable. Has mild nausea persistent RUQ pain controlled analgesia. Abd US yesterday acute cholecystitis. Denies vomiting, f/c. + normal BM. No chest pain, sob, leg pain, back pain. OBJECTIVE: Vital Signs Period Temp Pulse Resp BP Sys/Sutton Pulse Ox Last 24 Hr 97.4 F-98.9 F 89-100 16-22 133-154/82-108 96 GENERAL: Awake, alert, and fully oriented, in no acute distress. HEAD: Normal with no signs of trauma. EYES: Pupils equal, round and reactive to light, extraocular movements intact, sclera anicteric, conjunctiva clear. EARS, NOSE, THROAT: Moist mucous membranes. NECK: supple without JVD, or masses. LUNGS: Breath sounds equal, clear to auscultation bilaterally. No wheezes, and no crackles. HEART: Regular rate and rhythm, normal S1 and S2 ABDOMEN: Soft, not distended, not tympanic, globally reduced bowel sounds, mildly tender RUQ, no guarding, no rebound, no masses. No hepatomegaly or splenomegaly. Negative [place]. MUSCULOSKELETAL: No CVA tenderness. UPPER EXTREMITIES: 2+ pulses, warm, well-perfused. No peripheral edema. LOWER EXTREMITIES: 2+ pulses, warm, well-perfused. No calf tenderness. No peripheral edema. NEUROLOGICAL: Cranial nerves II-XII grossly intact. Normal speech. normal gait PSYCHIATRIC: Cooperative. Good eye contact. Appropriate mood and affect. SKIN: Warm, dry Laboratory Results - last 24 hr 12/13/16 12/13/16 12/13/16 11:00 11:00 11:00 WBC RBC Hgb Hct MCV MCHC RDW Plt Count MPV Neutrophils % Lymphocytes % Monocytes % Eosinophils % Basophils % Sodium 136 Potassium 3.5 Chloride 100 Carbon Dioxide 24 Anion Gap 12 BUN 7 D Creatinine 0.8 Creat Clearance w eGFR Random Glucose 85 Calcium 8.5 Phosphorus Magnesium Total Bilirubin 0.6 Direct Bilirubin 0.1 AST 20 ALT 21 Alkaline Phosphatase 58 Total Protein 7.5 Albumin 3.4 Urine Color Urine Appearance Urine pH Ur Specific Loop Urine Protein Urine Glucose (UA) Urine Ketones Urine Blood Urine Nitrite Urine Bilirubin Urine Urobilinogen Ur Leukocyte Esterase Urine RBC Urine WBC Ur Epithelial Cells Urine Mucus U Random Total Protein Urine Creatinine Protein/Creatinin Ratio Blood Type O POSITIVE Antibody Screen Negative 12/13/16 12/13/16 12/14/16 14:45 14:45 06:15 WBC 9.0 RBC 5.55 H Hgb 11.1 Hct 35.3 MCV 63.6 L MCHC 31.4 L RDW 17.7 H Plt Count 286 MPV 8.5 D Neutrophils % 60.0 D Lymphocytes % 23.7 D Monocytes % 14.2 H D Eosinophils % 1.8 D Basophils % 0.3 Sodium Potassium Chloride Carbon Dioxide Anion Gap BUN Creatinine Creat Clearance w eGFR Random Glucose Calcium Phosphorus Magnesium Total Bilirubin Direct Bilirubin AST ALT Alkaline Phosphatase Total Protein Albumin Urine Color Ltyellow Urine Appearance Clear Urine pH 5.[address] 1.016 Urine Protein 1+ H D Urine Glucose (UA) Negative Urine Ketones 2+ H Urine Blood 1+ H Urine Nitrite Negative Urine Bilirubin Negative Urine Urobilinogen Negative Ur Leukocyte Esterase Trace H Urine RBC 1 Urine WBC 15 Ur Epithelial Cells Moderate Urine Mucus Rare U Random Total Protein 42 H Urine Creatinine 135.0 Protein/Creatinin Ratio 0.311 Blood Type Antibody Screen 12/14/16 06:15 WBC RBC Hgb Hct MCV MCHC RDW Plt Count MPV Neutrophils % Lymphocytes % Monocytes % Eosinophils % Basophils % Sodium 136 Potassium 3.4 L Chloride 99 Carbon Dioxide 26 Anion Gap 11 BUN 8 Creatinine 0.8 Creat Clearance w eGFR > 60 Random Glucose 89 Calcium 8.6 Phosphorus 2.8 D Magnesium 1.9 Total Bilirubin 0.6 Direct Bilirubin AST 12 L D ALT 18 Alkaline Phosphatase 54 Total Protein 7.0 Albumin 3.3 L Urine Color Urine Appearance Urine pH Ur Specific Loop Urine Protein Urine Glucose (UA) Urine Ketones Urine Blood Urine Nitrite Urine Bilirubin Urine Urobilinogen Ur Leukocyte Esterase Urine RBC Urine WBC Ur Epithelial Cells Urine Mucus U Random Total Protein Urine Creatinine Protein/Creatinin Ratio Blood Type Antibody Screen Active Medications Generic Name Dose Route Start Last Admin Trade Name Freq PRN Reason Stop Dose Admin Amlodipine Besylate 10 mg 12/13/16 19:30 12/13/16 22:27 Norvasc - PO 10 mg DAILY ZEUS Administration Ceftriaxone Sodium 2 gm 12/12/16 22:15 12/13/16 11:08 Rocephin 2gm Ivpb (Pre-Docked) IVPB 2 gm DAILY ZEUS Administration Protocol Metronidazole 100 mls @ 100 mls/hr 12/12/16 22:15 12/14/16 01:52 Flagyl 500mg Premixed Ivpb - IVPB 100 mls/hr Q8H-IV ZEUS Administration Potassium Chloride 20 meq/ 1,010 mls @ 100 mls/hr 12/14/16 09:15 Sodium Chloride IVPB ASDIR ZEUS Lisinopril 10 mg 12/13/16 10:00 12/13/16 09:21 Prinivil PO Not Given DAILY ZEUS Morphine Sulfate 2 mg 12/13/16 10:17 12/14/16 06:26 Morphine Injection - IVPUSH 2 mg Q3H PRN Administration PAIN Pantoprazole Sodium 40 mg 12/12/16 10:00 12/13/16 09:14 Protonix 40mg Ivpb (Pre-Docked) IVPB 40 mg DAILY ZEUS Administration ASSESSMENT/PLAN: This is a 46 yo F with PMH of HTN and sarcoidosis ([facility] ), who presents due to new onset RUQ abd pain and vomiting since last night. Biliary Colic now Acute cholecystitis with Cystic duct obstruction -in stable condition, afebrile, no leukocytosis -initial GB US: clolelithiasis only -repeat GB US: acute cholecystitis -HIDA: cystic duct obstruction, acute cholecystitis. -initial Liver enzynes, tbili wnl -initial lipase wnl -initial CXR wnl -order todays labs -repeat GB US -consider CT abd/pelvis with po/iv contrast -continue rocephin/flagyl day 3 -NS@100 -Morphine 1q4h -zofran 4q4h -NPO -Hunter consult appreciated -GI consult appreciated -INR, Type/screen -patient needs lap feli vini -notify surgery HTN -hold lisinopril/HCTZ 10-12.5 -lisinopril 10 PO d Sarcoid -no acute symptoms -CXR FEN NS@100 lytes stable NPO SCD, PPI Dispo: med hunter Problem List - Problems (1) Abdominal pain Code(s): R10.9 - UNSPECIFIED ABDOMINAL PAIN (2) HTN (hypertension) Code(s): I10 - ESSENTIAL (PRIMARY) HYPERTENSION (3) Sarcoidosis Code(s): D86.9 - SARCOIDOSIS, UNSPECIFIED (4) Biliary colic Code(s): K80.50 - CALCULUS OF BILE DUCT W/O CHOLANGITIS OR CHOLECYST W/O OBST (5) Acute cholecystitis Code(s): K81.0 - ACUTE CHOLECYSTITIS Visit type - Emergency Visit Emergency Visit: Yes ED Registration Date: 12/11/16 Care time: The patient presented to the Emergency Department on the above date and was hospitalized for further evaluation of their emergent condition. - New Patient This patient is new to me today: No - Critical Care Critical Care patient: No - Discharge Referral Referred to [facility] Med P.C.: No
[2016-12-14] MEDS: amLODIPine BESYLATE 10 MG TABLET (FP) PO SCH ×2 (10:45→12:33)
[2016-12-14] MEDS: PANTOPRAZOLE SODIUM 40 MG/100 ML PRE-DOCKED IVPB SCH ×2 (10:45→16:22)
[2016-12-14] MEDS: LISINOPRIL 10 MG TABLET (FP) PO SCH ×2 (10:45→12:33)
[2016-12-14] MEDS: cefTRIAXone 2 GM/100 ML BAG (PRE-DOCKED) IVPB SCH ×2 (10:45→14:47)
[2016-12-14] MEDS: SODIUM CHLORIDE 0.45% 1,000 ML with POTASSIUM CHLORIDE 20 MEQ IVPB SCH ×2 (11:04→12:34)
[2016-12-14 11:50] LABS: ACANTHOCYTES 1+; ANISOCYTOSIS 2+; HYPOCHROMIA 2+; MICROCYTOSIS 2+; OVALOCYTES 1+; POIKILOCYTOSIS 1+; POLYCHROMASIA FEW; TARGET CELLS FEW; TEAR DROP CELLS FEW
[2016-12-14 12:55] LABS: BASOPHIL 0.6 % (0-2.0); EOSINOPHIL 1.2 % (0-4.5); MCH 19.6 pg (25.7-33.7); MCHC 30.9 g/dl (32.0-36.0); MEAN CELL VOLUME 63.5 fl (80-96); MEAN PLT VOLUME 8.5 fl (7.5-11.1); NEUTROPHILS 72.2 % (42.8-82.8); PLATELET COUNT 306 K/MM3 (134-434); RDW 17.4 % (11.6-15.6); WHITE BLOOD COUNT 9.7 K/mm3 (4.0-10.0)
--- NOTE | 2016-12-14 13:30 | PN ---
Progress Note (short form) - Note Progress Note: continues with RUQ pain afebrile just returned from HIDA scan Vital Signs Period Temp Pulse Resp BP Sys/Sutton Pulse Ox Last 24 Hr 97.4 F-99.6 F 89-100 16-22 133-151/82-108 96 cor-rrr llungs clear abd +RUQ pain, soft ext no edema CBC, BMP 12/14/16 12:29 12/14/16 06:15 lfts nl a/p acute cholycystitis- sono/hida scan results noted continue ceftriaxone/flagyl surgical f/u htn- bp improved today
--- NOTE | 2016-12-14 14:57 | PN ---
Progress Note, Physician History of Present Illness: Pt seen and examined at bedside. She is awake and alert. She complains of right sided abdominal pain. - Current Medication List Current Medications: Active Medications Amlodipine Besylate (Norvasc -) 10 mg PO DAILY [facility] Last Admin: 12/14/16 12:33 Dose: 10 mg Ceftriaxone Sodium (Rocephin 2gm Ivpb (Pre-Docked)) 2 gm IVPB DAILY ZEUS PRN Reason: Protocol Last Admin: 12/14/16 14:47 Dose: 2 gm Metronidazole (Flagyl 500mg Premixed Ivpb -) 100 mls @ 100 mls/hr IVPB Q8H-IV ZEUS Last Admin: 12/14/16 12:34 Dose: 100 mls/hr Potassium Chloride 20 meq/ (Sodium Chloride) 1,010 mls @ 100 mls/hr IVPB ASDIR [facility] Last Admin: 12/14/16 12:34 Dose: 100 mls/hr Lisinopril (Prinivil) 10 mg PO DAILY [facility] Last Admin: 12/14/16 12:33 Dose: 10 mg Morphine Sulfate (Morphine Injection -) 2 mg IVPUSH Q3H PRN PRN Reason: PAIN Last Admin: 12/14/16 14:40 Dose: 2 mg Pantoprazole Sodium (Protonix 40mg Ivpb (Pre-Docked)) 40 mg IVPB DAILY [facility] Last Admin: 12/14/16 10:45 Dose: Not Given - Objective Vital Signs: Vital Signs Temperature 99.6 F 12/14/16 12:31 Pulse Rate 97 H 12/14/16 12:31 Respiratory Rate 20 12/14/16 12:31 Blood Pressure 146/92 12/14/16 12:31 O2 Sat by Pulse Oximetry (%) 96 12/13/16 22:00 Constitutional: Yes: Calm Eyes: Yes: Conjunctiva Clear HENT: Yes: Atraumatic Neck: Yes: Supple Cardiovascular: Yes: S1, S2 Respiratory: Yes: CTA Bilaterally Gastrointestinal: Yes: Tenderness Genitourinary: Yes: WNL Musculoskeletal: Yes: WNL Edema: No Neurological: Yes: Oriented Psychiatric: Yes: Oriented Labs: CBC, BMP 12/14/16 12:29 12/14/16 06:15 INR, PTT INR 1.20 (0.82-1.09) H 12/11/16 18:05 Problem List - Problems (1) Abdominal pain Code(s): R10.9 - UNSPECIFIED ABDOMINAL PAIN (2) Biliary colic Code(s): K80.50 - CALCULUS OF BILE DUCT W/O CHOLANGITIS OR CHOLECYST W/O OBST (3) HTN (hypertension) Code(s): I10 - ESSENTIAL (PRIMARY) HYPERTENSION (4) Sarcoidosis Code(s): D86.9 - SARCOIDOSIS, UNSPECIFIED Assessment/Plan Current Medications Generic Name Dose Route Start Last Admin Trade Name Freq PRN Reason Stop Dose Admin Amlodipine Besylate 10 mg 12/13/16 19:30 12/14/16 12:33 Norvasc - PO 10 mg DAILY ZEUS Administration Ceftriaxone Sodium 2 gm 12/12/16 22:15 12/14/16 14:47 Rocephin 2gm Ivpb (Pre-Docked) IVPB 2 gm DAILY ZEUS Administration Protocol Metronidazole 100 mls @ 100 mls/hr 12/12/16 22:15 12/14/16 12:34 Flagyl 500mg Premixed Ivpb - IVPB 100 mls/hr Q8H-IV ZEUS Administration Potassium Chloride 20 meq/ 1,010 mls @ 100 mls/hr 12/14/16 09:15 12/14/16 12:34 Sodium Chloride IVPB 100 mls/hr ASDIR ZEUS Administration Lisinopril 10 mg 12/13/16 10:00 12/14/16 12:33 Prinivil PO 10 mg DAILY ZEUS Administration Morphine Sulfate 2 mg 12/13/16 10:17 12/14/16 14:40 Morphine Injection - IVPUSH 2 mg Q3H PRN Administration PAIN Pantoprazole Sodium 40 mg 12/12/16 10:00 12/14/16 10:45 Protonix 40mg Ivpb (Pre-Docked) IVPB Not Given DAILY ZEUS Impression 1. sarcoid 2. abdominal pain 3. acute cholecystitis 4. HTN Plan - add potassium to saline - monitor labs - GI input appreciated - surgery follow up - cont with lisinopril for now - will follow Dr Joel
--- NOTE | 2016-12-14 15:10 | SPA.PREOP ---
- PRE-OP NOTE Dx: cholelithiasis, acute cholecystitits Planned Procedure: Laparoscopic, possible open, cholecystectomy Surgeon: Dr. Glover Consent: To be obtained after surgeon explains all risks, benefits and alternatives. Last Vital Signs Temp Pulse Resp BP Pulse Ox 99.6 F 97 H 20 146/92 96 12/14/16 12:31 12/14/16 12:31 12/14/16 12:31 12/14/16 12:31 12/13/16 22:00 Lab Results WBC 9.7 K/mm3 (4.0-10.0) 12/14/16 12:29 RBC 5.72 M/mm3 (3.60-5.2) H 12/14/16 12:29 Hgb 11.2 GM/dL (10.7-15.3) 12/14/16 12:29 Hct 36.3 % (32.4-45.2) 12/14/16 12:29 MCV 63.5 fl (80-96) L 12/14/16 12:29 MCHC 30.9 g/dl (32.0-36.0) L 12/14/16 12:29 RDW 17.4 % (11.6-15.6) H 12/14/16 12:29 Plt Count 306 K/MM3 (134-434) 12/14/16 12:29 Sodium 136 mmol/L (136-145) 12/14/16 06:15 Potassium 3.4 mmol/L (3.5-5.1) L 12/14/16 06:15 Chloride 99 mmol/L (98-107) 12/14/16 06:15 Carbon Dioxide 26 mmol/L (21-32) 12/14/16 06:15 Anion Gap 11 (8-16) 12/14/16 06:15 BUN 8 mg/dL (7-18) 12/14/16 06:15 Creatinine 0.8 mg/dL (0.55-1.02) 12/14/16 06:15 Random Glucose 89 mg/dL (74-106) 12/14/16 06:15 Calcium 8.6 mg/dL (8.5-10.1) 12/14/16 06:15 Blood Type O POSITIVE 12/13/16 11:00 Antibody Screen Negative 12/13/16 11:00 INR 1.20 (0.82-1.09) H 12/11/16 18:05 Exam: Gen: NAD, understands will have surgery scheduled for tomorrow at 7:30 Abd: soft, nondistended, RUQ tenderness - IMAGING Other: Report Reviewed, Other (HIDA report reviewed) - ASSESSMENT/PLAN 1. Make NPO after midnight except po meds 2. GI/DVT PPX 3. Medical optimization / clearance Visit type - Case Type Case Type: ED Admission
--- NOTE | 2016-12-14 21:41 | PN ---
Teaching Attending Note Name of Resident: Vijaya Kong ATTENDING PHYSICIAN STATEMENT I saw and evaluated the patient. I reviewed the resident's note and discussed the case with the resident. I agree with the resident's findings and plan as documented. Continues to have pain, pain medication is helping her. Going to or in am Vital Signs Temperature 98.4 F 12/14/16 18:55 Pulse Rate 100 H 12/14/16 18:55 Respiratory Rate 20 12/14/16 18:55 Blood Pressure 142/88 12/14/16 18:55 O2 Sat by Pulse Oximetry (%) 96 12/13/16 22:00 CBCD WBC 9.7 K/mm3 (4.0-10.0) 12/14/16 12:29 RBC 5.72 M/mm3 (3.60-5.2) H 12/14/16 12:29 Hgb 11.2 GM/dL (10.7-15.3) 12/14/16 12:29 Hct 36.3 % (32.4-45.2) 12/14/16 12:29 MCV 63.5 fl (80-96) L 12/14/16 12:29 MCHC 30.9 g/dl (32.0-36.0) L 12/14/16 12:29 RDW 17.4 % (11.6-15.6) H 12/14/16 12:29 Plt Count 306 K/MM3 (134-434) 12/14/16 12:29 MPV 8.5 fl (7.5-11.1) 12/14/16 12:29 CMP Sodium 136 mmol/L (136-145) 12/14/16 06:15 Potassium 3.4 mmol/L (3.5-5.1) L 12/14/16 06:15 Chloride 99 mmol/L (98-107) 12/14/16 06:15 Carbon Dioxide 26 mmol/L (21-32) 12/14/16 06:15 Anion Gap 11 (8-16) 12/14/16 06:15 BUN 8 mg/dL (7-18) 12/14/16 06:15 Creatinine 0.8 mg/dL (0.55-1.02) 12/14/16 06:15 Creat Clearance w eGFR > 60 (>60) 12/14/16 06:15 Random Glucose 89 mg/dL (74-106) 12/14/16 06:15 Calcium 8.6 mg/dL (8.5-10.1) 12/14/16 06:15 Total Bilirubin 0.6 mg/dL (0.2-1.0) 12/14/16 06:15 AST 12 U/L (15-37) L D 12/14/16 06:15 ALT 18 U/L (12-78) 12/14/16 06:15 Alkaline Phosphatase 54 U/L (45-117) 12/14/16 06:15 Total Protein 7.0 g/dl (6.4-8.2) 12/14/16 06:15 Albumin 3.3 g/dl (3.4-5.0) L 12/14/16 06:15 Current Medications Generic Name Dose Route Start Last Admin Trade Name Freq PRN Reason Stop Dose Admin Amlodipine Besylate 10 mg 12/13/16 19:30 12/14/16 12:33 Norvasc - PO 10 mg DAILY ZEUS Administration Ceftriaxone Sodium 2 gm 12/12/16 22:15 12/14/16 14:47 Rocephin 2gm Ivpb (Pre-Docked) IVPB 2 gm DAILY ZEUS Administration Protocol Metronidazole 100 mls @ 100 mls/hr 12/12/16 22:15 12/14/16 21:32 Flagyl 500mg Premixed Ivpb - IVPB 100 mls/hr Q8H-IV ZEUS Administration Potassium Chloride 20 meq/ 1,010 mls @ 100 mls/hr 12/14/16 09:15 12/14/16 12:34 Sodium Chloride IVPB 100 mls/hr ASDIR ZEUS Administration Lisinopril 10 mg 12/13/16 10:00 12/14/16 12:33 Prinivil PO 10 mg DAILY ZEUS Administration Morphine Sulfate 2 mg 12/13/16 10:17 12/14/16 21:32 Morphine Injection - IVPUSH 2 mg Q3H PRN Administration PAIN Pantoprazole Sodium 40 mg 12/12/16 10:00 12/14/16 16:22 Protonix 40mg Ivpb (Pre-Docked) IVPB 40 mg DAILY ZEUS Administration Home Medications Medication Instructions Recorded Lisinopril/Hydrochlorothiazide 1 each PO DAILY 12/11/16 [Lisinopril-Hctz 10-12.5 mg Tab] Physical exam,rOS, as per resident's note GB US: clolelithiasis ASSESSMENT AND PLAN: Patient is a 46 year old female, past medical history of HTN nd sarcoidosis awho presents to the ED with right sided abdominal pain and vomiting for 8 hours. # Acute cholecystitis per HIDA scan and clinically , patient continues to have severe pain but wiill continue IV antibiotic , discussed with surgery , patient will go to surgery in am around 7:30 am , as per ID to continue with Flagyl/ Rocephin IV. continue NPO, GI consult appreciated, #HTN is better controlled today . will discontinue 0.9ns since BP is elevated, will start on d51/2NS at 100cc/hr. #Sarcoidosis no acute symptoms DVT Px: SCDs
[2016-12-15] MEDS: SODIUM CHLORIDE 0.45% 1,000 ML with POTASSIUM CHLORIDE 20 MEQ IVPB SCH (02:23)
[2016-12-15] MEDS: METRONIDAZOLE 500 MG PREMIXED 100 ML IVPB SCH ×3 (03:29→17:21)
[2016-12-15] MEDS ORDERED: MIDAZOLAM HCL 2 MG/2 ML SINGLE DOSE VIAL ONE (07:29)
[2016-12-15] MEDS ORDERED: LIDOCAINE HCL/PF 2% SDV 5ML VIAL ONE (07:50)
[2016-12-15] MEDS ORDERED: ROCURONIUM BROMIDE 50 MG/5 ML VIAL ONE (07:50)
[2016-12-15] MEDS ORDERED: PROPOFOL 20 ML ONE ×2 (07:50)
[2016-12-15 07:59] LABS: BASOPHIL 0.5 % (0-2.0); EOSINOPHIL 2.2 % (0-4.5); MCHC 31.4 g/dl (32.0-36.0); MEAN CELL VOLUME 63.3 fl (80-96); MEAN PLT VOLUME 8.7 fl (7.5-11.1); NEUTROPHILS 67.7 % (42.8-82.8); PLATELET COUNT 303 K/MM3 (134-434); RDW 17.3 % (11.6-15.6); WHITE BLOOD COUNT 8.9 K/mm3 (4.0-10.0)
--- NOTE | 2016-12-15 08:01 | EKG ---
Test Reason : Blood Pressure : / mmHG Vent. Rate : 095 BPM Atrial Rate : 095 BPM P-R Int : 126 ms QRS Dur : 072 ms QT Int : 364 ms P-R-T Axes : 017 024 -19 degrees QTc Int : 457 ms SINUS RHYTHM WITH OCCASIONAL PREMATURE VENTRICULAR COMPLEXES POSSIBLE LEFT ATRIAL ENLARGEMENT LEFT VENTRICULAR HYPERTROPHY NONSPECIFIC T WAVE ABNORMALITY ABNORMAL ECG WHEN COMPARED WITH ECG OF 26-NOV-2015 07:57, PREMATURE VENTRICULAR COMPLEXES ARE NOW PRESENT T WAVE INVERSION MORE EVIDENT IN INFEROLATERAL LEADS Confirmed by ANA MATUTE MD ([id number]) on 12/15/2016 8:01:22 AM Referred By: Josefa CARBONE Confirmed By:ANA MATUTE MD
[2016-12-15 08:02] LABS: FERRITIN 34.213 ng/ml (6.9-282.5)
[2016-12-15 08:03] LABS: MCH 19.9 pg (25.7-33.7)
[2016-12-15] MEDS ORDERED: NEOSTIGMINE METHYLSULFATE 0.5 MG/ML - 10 ML MDV ONE (08:24)
[2016-12-15] MEDS ORDERED: GLYCOPYRROLATE 0.2 MG/1 ML VIAL ONE (08:24)
[2016-12-15] MEDS ORDERED: DEXAMETHASONE SOD PHOSPHATE 4 MG/1 ML VIAL ONE (08:24)
[2016-12-15 09:02] LABS: CALCIUM 8.6 mg/dL (8.5-10.1); CREATININE 0.7 mg/dL (0.55-1.02)
--- NOTE | 2016-12-15 09:03 | PN ---
Teaching Attending Note Name of Resident: Vijaya Kong ATTENDING PHYSICIAN STATEMENT I saw and evaluated the patient. I reviewed the resident's note and discussed the case with the resident. I agree with the resident's findings and plan as documented. Patient is going for surgery Vital Signs Temperature 98.8 F 12/15/16 07:00 Pulse Rate 95 H 12/15/16 07:00 Respiratory Rate 18 12/15/16 07:00 Blood Pressure 132/94 12/15/16 07:00 O2 Sat by Pulse Oximetry (%) 95 12/14/16 12:40 CBCD WBC 8.9 K/mm3 (4.0-10.0) 12/15/16 06:35 RBC 5.46 M/mm3 (3.60-5.2) H 12/15/16 06:35 Hgb 10.9 GM/dL (10.7-15.3) 12/15/16 06:35 Hct 34.6 % (32.4-45.2) 12/15/16 06:35 MCV 63.3 fl (80-96) L 12/15/16 06:35 MCHC 31.4 g/dl (32.0-36.0) L 12/15/16 06:35 RDW 17.3 % (11.6-15.6) H 12/15/16 06:35 Plt Count 303 K/MM3 (134-434) 12/15/16 06:35 MPV 8.7 fl (7.5-11.1) 12/15/16 06:35 CMP Sodium 140 mmol/L (136-145) 12/15/16 06:35 Potassium 3.6 mmol/L (3.5-5.1) 12/15/16 06:35 Chloride 105 mmol/L (98-107) 12/15/16 06:35 Carbon Dioxide 21 mmol/L (21-32) 12/15/16 06:35 Anion Gap 14 (8-16) 12/15/16 06:35 BUN 11 mg/dL (7-18) D 12/15/16 06:35 Creatinine 0.7 mg/dL (0.55-1.02) 12/15/16 06:35 Creat Clearance w eGFR > 60 (>60) 12/14/16 06:15 Random Glucose 82 mg/dL (74-106) 12/15/16 06:35 Calcium 8.6 mg/dL (8.5-10.1) 12/15/16 06:35 Total Bilirubin 0.6 mg/dL (0.2-1.0) 12/14/16 06:15 AST 12 U/L (15-37) L D 12/14/16 06:15 ALT 18 U/L (12-78) 12/14/16 06:15 Alkaline Phosphatase 54 U/L (45-117) 12/14/16 06:15 Total Protein 7.0 g/dl (6.4-8.2) 12/14/16 06:15 Albumin 3.3 g/dl (3.4-5.0) L 12/14/16 06:15 Current Medications Generic Name Dose Route Start Last Admin Trade Name Freq PRN Reason Stop Dose Admin Amlodipine Besylate 10 mg 12/13/16 19:30 12/14/16 12:33 Norvasc - PO 10 mg DAILY ZEUS Administration Ceftriaxone Sodium 2 gm 12/12/16 22:15 12/14/16 14:47 Rocephin 2gm Ivpb (Pre-Docked) IVPB 2 gm DAILY ZEUS Administration Protocol Metronidazole 100 mls @ 100 mls/hr 12/12/16 22:15 12/15/16 03:29 Flagyl 500mg Premixed Ivpb - IVPB 100 mls/hr Q8H-IV ZEUS Administration Potassium Chloride 20 meq/ 1,010 mls @ 100 mls/hr 12/14/16 09:15 12/15/16 02:23 Sodium Chloride IVPB 100 mls/hr ASDIR ZEUS Administration Lisinopril 10 mg 12/13/16 10:00 12/14/16 12:33 Prinivil PO 10 mg DAILY ZEUS Administration Morphine Sulfate 2 mg 12/13/16 10:17 12/14/16 21:32 Morphine Injection - IVPUSH 2 mg Q3H PRN Administration PAIN Pantoprazole Sodium 40 mg 12/12/16 10:00 12/14/16 16:22 Protonix 40mg Ivpb (Pre-Docked) IVPB 40 mg DAILY ZEUS Administration Home Medications Medication Instructions Recorded Lisinopril/Hydrochlorothiazide 1 each PO DAILY 12/11/16 [Lisinopril-Hctz 10-12.5 mg Tab] Physical exam,ROS, as per resident's note GB US: clolelithiasis ASSESSMENT AND PLAN: Patient is a 46 year old female, past medical history of HTN nd sarcoidosis awho presents to the ED with right sided abdominal pain and vomiting for 8 hours. # Acute cholecystitis as per HIDA scan patient is going for lap chol. this morning .on IV antibiotic Flagyl/Rocephin IV. continue NPO. #HTN is better controlled today . will discontinue 0.9ns since BP is elevated, will start on d51/2NS with 20meq kcl at 100cc/hr. #Sarcoidosis no acute symptoms DVT Px: SCDs
[2016-12-15] MEDS ORDERED: BUPIVACAINE HCL/PF (5 MG/ML) 30 ML VIAL IJ ONE ×2 (09:11)
[2016-12-15] MEDS ORDERED: KETOROLAC TROMETHAMINE 30 MG/1 ML VIAL ONE (09:13)
--- NOTE | 2016-12-15 09:31 | OP ---
Operative Note - Note: Operative Date: 12/15/16 Pre-Operative Diagnosis: acute cholecystitis/lithiasis Operation: lap feli Post-Operative Diagnosis: Same as Pre-op Surgeon: Juan Glover Research Dietitian: Fidel Arriola Anesthesiologist/DIRECT MAIL MARKETER: Misti Byrne Anesthesia: General Specimens Removed: gallbladder Estimated Blood Loss (mls): 15 Fluid Volume Replaced (mls): 900 Operative Report Dictated: Yes
--- NOTE | 2016-12-15 09:32 | SURG ---
Surgery Case Manager Specialist Note Case Manager Specialist: Fidel Arriola PA-C Date of Service: 12/15/16 Diagnosis: acute cholecystitis/lithiasis Procedure: lap feli I was present for the entirety of the operative procedure. For further detail, please refer to operative report. Visit type - Case Type Case Type: ED Admission - Emergency Emergency Visit: Yes ED Registration Date: 12/11/16 Care time: The patient presented to the Emergency Department on the above date and was hospitalized for further evaluation of their emergent condition. - New patient This patient is new to me today: Yes Date on this admission: 12/15/16
[2016-12-15] MEDS ORDERED: HYDROmorphone HCL CARPU-JECT 1 MG/1 ML DISP.SYRIN IVPUSH PRN ×2 (09:35→19:48)
[2016-12-15] MEDS ORDERED: ONDANSETRON 4 MG/2 ML VIAL IVPUSH PRN (09:35)
[2016-12-15] MEDS ORDERED: LACTATED RINGERS SOLUTION 1,000 ML IV SCH (09:45)
[2016-12-15] MEDS ORDERED: ACETAMINOPHEN 1000 MG/100 ML VIAL (NON FORMULARY) IVPB ONE ×2 (10:05→11:15)
[2016-12-15] MEDS ORDERED: cefTRIAXone 2 GM/100 ML BAG (PRE-DOCKED) IVPB ONE (10:34)
[2016-12-15] MEDS ORDERED: METRONIDAZOLE 500 MG PREMIXED 500 MG/100 ML MG IVPB ONE (10:56)
[2016-12-15] MEDS ORDERED: HYDROmorphone HCL CARPU-JECT 2 MG/1 ML DISP.SYRIN ONE (11:21)
[2016-12-15] MEDS ORDERED: HYDROmorphone HCL CARPU-JECT 2 MG/1 ML DISP.SYRIN IVPUSH ONE ×3 (11:24→11:33)
[2016-12-15] MEDS: cefTRIAXone 2 GM/100 ML BAG (PRE-DOCKED) IVPB SCH (12:21)
--- NOTE | 2016-12-15 12:41 | PN ---
Progress Note (short form) - Note Progress Note: s/p lap choly today feels well no complaints Vital Signs Period Temp Pulse Resp BP Sys/Sutton Pulse Ox Last 24 Hr 97.6 F-99.1 F 78-108 16-20 127-154/72-98 95-100 cor-rrr lungs clear abd soft,mild incisional pain ext no edema CBC, BMP 12/15/16 06:35 12/15/16 06:35 Microbiology 12/12/16 23:00 Blood - Peripheral Venous Blood Culture - Preliminary NO GROWTH OBTAINED AFTER 48 HOURS, INCUBATION TO CONTINUE FOR 3 DAYS. 12/12/16 23:00 Blood - Peripheral Venous Blood Culture - Preliminary NO GROWTH OBTAINED AFTER 48 HOURS, INCUBATION TO CONTINUE FOR 3 DAYS. a/p s/p lap choly can d/c antibiotics if okay with surgery please call back if needed
--- NOTE | 2016-12-15 13:34 | PN ---
Physical Exam: SUBJECTIVE: Patient seen and examined Patient resting in bed. s/p uneventful lap feli thsi AM. Afebrile and hemodynamically stable. pain controlled with analgesia. Denies f/c, n/v, chest pain, sob, leg pain, back pain. Hasnt tried food yet. No flatus yet OBJECTIVE: Vital Signs Period Temp Pulse Resp BP Sys/Sutton Pulse Ox Last 24 Hr 97.6 F-99.1 F 78-108 16-20 127-154/72-98 97-100 GENERAL: Awake, alert, and fully oriented, in no acute distress. HEAD: Normal with no signs of trauma. EYES: Pupils equal, round and reactive to light, extraocular movements intact, sclera anicteric, conjunctiva clear. EARS, NOSE, THROAT: Moist mucous membranes. NECK: supple without JVD, or masses. LUNGS: Breath sounds equal, clear to auscultation bilaterally. No wheezes, and no crackles. HEART: Regular rate and rhythm, normal S1 and S2 ABDOMEN: Soft, mildly distended, globally reduced bowel sounds, mildly tender diffusely, no guarding, no rebound, no masses. surgical incisions intact and clean, clean dressings. No bleeding MUSCULOSKELETAL: No CVA tenderness. UPPER EXTREMITIES: 2+ pulses, warm, well-perfused. No peripheral edema. LOWER EXTREMITIES: 2+ pulses, warm, well-perfused. No calf tenderness. No peripheral edema. NEUROLOGICAL: Cranial nerves II-XII grossly intact. Normal speech. normal gait PSYCHIATRIC: Cooperative. Good eye contact. Appropriate mood and affect. SKIN: Warm, dry Laboratory Results - last 24 hr 12/15/16 12/15/16 12/15/16 05:45 06:35 06:35 WBC 8.9 RBC 5.46 H Hgb 10.9 Hct 34.6 MCV 63.3 L MCHC 31.4 L RDW 17.3 H Plt Count 303 MPV 8.7 Neutrophils % 67.7 Lymphocytes % 17.9 D Monocytes % 11.7 H Eosinophils % 2.2 D Basophils % 0.5 Sodium Cancelled 140 Potassium Cancelled 3.6 Chloride Cancelled 105 Carbon Dioxide Cancelled 21 Anion Gap Cancelled 14 BUN Cancelled 11 D Creatinine Cancelled 0.7 Random Glucose Cancelled 82 Calcium Cancelled 8.6 Ferritin 34.213 Active Medications Generic Name Dose Route Start Last Admin Trade Name Freq PRN Reason Stop Dose Admin Amlodipine Besylate 10 mg 12/13/16 19:30 12/14/16 12:33 Norvasc - PO 10 mg DAILY ZEUS Administration Ceftriaxone Sodium 2 gm 12/12/16 22:15 12/15/16 12:21 Rocephin 2gm Ivpb (Pre-Docked) IVPB Not Given DAILY ZEUS Protocol Hydromorphone HCl 1 mg 12/15/16 09:35 Dilaudid Injection - IVPUSH 12/18/16 09:36 [id number] PRN PAIN Metronidazole 100 mls @ 100 mls/hr 12/12/16 22:15 12/15/16 12:21 Flagyl 500mg Premixed Ivpb - IVPB Not Given Q8H-IV ZEUS Lactated Ringer's 1,000 mls @ 125 mls/hr 12/15/16 09:45 Lactated Ringers Solution IV ASDIR ZEUS Lisinopril 10 mg 12/13/16 10:00 12/14/16 12:33 Prinivil PO 10 mg DAILY ZEUS Administration Morphine Sulfate 2 mg 12/13/16 10:17 12/14/16 21:32 Morphine Injection - IVPUSH 2 mg Q3H PRN Administration PAIN Ondansetron HCl 4 mg 12/15/16 09:35 Zofran Injection IVPUSH 12/15/16 15:36 Q6H PRN NAUSEA AND/OR VOMITING Pantoprazole Sodium 40 mg 12/12/16 10:00 12/14/16 16:22 Protonix 40mg Ivpb (Pre-Docked) IVPB 40 mg DAILY ZEUS Administration ASSESSMENT/PLAN: This is a 46 yo F with PMH of HTN and sarcoidosis (dx at [facility] biopsy 2004-stable ), who presents due to new onset RUQ abd pain and vomiting since last night. GB US: acute cholecystitis HIDA: cystic duct obstruction, acute cholecystitis. Biliary Colic now Acute cholecystitis with Cystic duct obstruction -s/p lap feli this AM -LR @ 125 -continue rocephin/flagyl day 4 -NS@100 -Morphine 2q3h -dilaudid SOFTWARE DEVELOPER INTERN -zofran 4q6h -Hunter consult appreciated -GI consult appreciated -Na controlled diet HTN -hold lisinopril/HCTZ 10-12.5 -amlodipine 10 PO d Sarcoid -no acute symptoms -CXR FEN LR@125 lytes stable Na controlled diet SCD, PPI Dispo: med hunter Problem List - Problems (1) Abdominal pain Code(s): R10.9 - UNSPECIFIED ABDOMINAL PAIN (2) HTN (hypertension) Code(s): I10 - ESSENTIAL (PRIMARY) HYPERTENSION (3) Sarcoidosis Code(s): D86.9 - SARCOIDOSIS, UNSPECIFIED (4) Biliary colic Code(s): K80.50 - CALCULUS OF BILE DUCT W/O CHOLANGITIS OR CHOLECYST W/O OBST (5) Acute cholecystitis Code(s): K81.0 - ACUTE CHOLECYSTITIS Visit type - Emergency Visit Emergency Visit: Yes ED Registration Date: 12/11/16 Care time: The patient presented to the Emergency Department on the above date and was hospitalized for further evaluation of their emergent condition. - New Patient This patient is new to me today: No - Critical Care Critical Care patient: No - Discharge Referral Referred to [facility] Med P.C.: No
[2016-12-15] MEDS: LISINOPRIL 10 MG TABLET (FP) PO SCH (13:52)
[2016-12-15] MEDS: PANTOPRAZOLE SODIUM 40 MG/100 ML PRE-DOCKED IVPB SCH (13:52)
[2016-12-15] MEDS: amLODIPine BESYLATE 10 MG TABLET (FP) PO SCH (13:52)
--- NOTE | 2016-12-15 15:50 | PN ---
Progress Note, Physician History of Present Illness: Pt seen and examined at bedside. She is awake and alert. She had a Lap Feli this morning. - Current Medication List Current Medications: Active Medications Amlodipine Besylate (Norvasc -) 10 mg PO DAILY [facility] Last Admin: 12/15/16 13:52 Dose: 10 mg Ceftriaxone Sodium (Rocephin 2gm Ivpb (Pre-Docked)) 2 gm IVPB DAILY ZEUS PRN Reason: Protocol Last Admin: 12/15/16 12:21 Dose: Not Given Hydromorphone HCl (Dilaudid Injection -) 1 mg IVPUSH [id number] PRN PRN Reason: PAIN Stop: 12/18/16 09:36 Metronidazole (Flagyl 500mg Premixed Ivpb -) 100 mls @ 100 mls/hr IVPB Q8H-IV [facility] Last Admin: 12/15/16 12:21 Dose: Not Given Lactated Ringer's (Lactated Ringers Solution) 1,000 mls @ 125 mls/hr IV ASDIR [facility] Last Admin: 12/15/16 13:51 Dose: 125 mls/hr Lisinopril (Prinivil) 10 mg PO DAILY [facility] Last Admin: 12/15/16 13:52 Dose: 10 mg Morphine Sulfate (Morphine Injection -) 2 mg IVPUSH Q3H PRN PRN Reason: PAIN Last Admin: 12/14/16 21:32 Dose: 2 mg Pantoprazole Sodium (Protonix 40mg Ivpb (Pre-Docked)) 40 mg IVPB DAILY [facility] Last Admin: 12/15/16 13:52 Dose: 40 mg - Objective Vital Signs: Vital Signs Temperature 97.9 F 12/15/16 14:58 Pulse Rate 79 12/15/16 14:58 Respiratory Rate 18 12/15/16 14:58 Blood Pressure 127/81 12/15/16 14:58 O2 Sat by Pulse Oximetry (%) 97 12/15/16 11:30 Constitutional: Yes: Calm Eyes: Yes: Conjunctiva Clear HENT: Yes: Atraumatic Neck: Yes: Supple Cardiovascular: Yes: S1, S2 Respiratory: Yes: CTA Bilaterally Gastrointestinal: Yes: Other (s/p lap feli, surgical incisions) Musculoskeletal: Yes: WNL Extremities: Yes: WNL Edema: No Neurological: Yes: Oriented Psychiatric: Yes: Oriented Labs: CBC, BMP 12/15/16 06:35 12/15/16 06:35 INR, PTT INR 1.20 (0.82-1.09) H 12/11/16 18:05 Problem List - Problems (1) Abdominal pain Code(s): R10.9 - UNSPECIFIED ABDOMINAL PAIN (2) Biliary colic Code(s): K80.50 - CALCULUS OF BILE DUCT W/O CHOLANGITIS OR CHOLECYST W/O OBST (3) HTN (hypertension) Code(s): I10 - ESSENTIAL (PRIMARY) HYPERTENSION (4) Sarcoidosis Code(s): D86.9 - SARCOIDOSIS, UNSPECIFIED Assessment/Plan Current Medications Generic Name Dose Route Start Last Admin Trade Name Freq PRN Reason Stop Dose Admin Amlodipine Besylate 10 mg 12/13/16 19:30 12/15/16 13:52 Norvasc - PO 10 mg DAILY ZEUS Administration Ceftriaxone Sodium 2 gm 12/12/16 22:15 12/15/16 12:21 Rocephin 2gm Ivpb (Pre-Docked) IVPB Not Given DAILY [facility] Protocol Hydromorphone HCl 1 mg 12/15/16 09:35 Dilaudid Injection - IVPUSH 12/18/16 09:36 [id number] PRN PAIN Metronidazole 100 mls @ 100 mls/hr 12/12/16 22:15 12/15/16 12:21 Flagyl 500mg Premixed Ivpb - IVPB Not Given Q8H-IV ZEUS Lactated Ringer's 1,000 mls @ 125 mls/hr 12/15/16 09:45 12/15/16 13:51 Lactated Ringers Solution IV 125 mls/hr ASDIR ZEUS Administration Lisinopril 10 mg 12/13/16 10:00 12/15/16 13:52 Prinivil PO 10 mg DAILY ZEUS Administration Morphine Sulfate 2 mg 12/13/16 10:17 12/14/16 21:32 Morphine Injection - IVPUSH 2 mg Q3H PRN Administration PAIN Pantoprazole Sodium 40 mg 12/12/16 10:00 12/15/16 13:52 Protonix 40mg Ivpb (Pre-Docked) IVPB 40 mg DAILY ZEUS Administration Impression 1. sarcoid 2. abdominal pain 3. acute cholecystitis 4. HTN Plan - renal function and lytes are stable - cont fluids until she is on a diet - repeat labs in am - will repeat UA as outpt, pt currently on menstrual cycle - pt is s/p lap feli - will follow PRN - please sent pt to office after discharge Dr Joel
[2016-12-15] MEDS: morphine CARPU-JECT 2 MG/1 ML DISP.SYRIN IVPUSH PRN ×2 (16:58→22:49)
[2016-12-16] MEDS: LACTATED RINGERS SOLUTION 1,000 ML IV SCH ×2 (01:50→06:31)
[2016-12-16] MEDS: METRONIDAZOLE 500 MG PREMIXED 100 ML IVPB SCH ×2 (03:11→11:27)
[2016-12-16] MEDS: morphine CARPU-JECT 2 MG/1 ML DISP.SYRIN IVPUSH PRN ×2 (03:11→11:40)
[2016-12-16 08:07] LABS: SERUM IRON 23 ug/dL (27-159); TOTAL IRON BINDING CAPACITY 315 ug/dL (250-450); UIBC 292 ug/dL (131-425)
[2016-12-16] MEDS ORDERED: amLODIPine BESYLATE 10 MG TABLET (FP) PO SCH (10:00)
[2016-12-16] MEDS ORDERED: LISINOPRIL 10 MG TABLET (FP) PO SCH (10:00)
[2016-12-16] MEDS ORDERED: cefTRIAXone 2 GM/100 ML BAG (PRE-DOCKED) IVPB SCH (10:00)
[2016-12-16] MEDS ORDERED: PANTOPRAZOLE SODIUM 40 MG/100 ML PRE-DOCKED IVPB SCH (10:00)
--- NOTE | 2016-12-16 11:27 | PN ---
Progress Note (short form) - Note Progress Note: Anesthesia Post op Pt seen and examined S;Alert and awake O: Vital Signs Temperature 97.9 F 12/16/16 10:55 Pulse Rate 68 12/16/16 10:55 Respiratory Rate 20 12/16/16 06:00 Blood Pressure 137/91 12/16/16 10:55 O2 Sat by Pulse Oximetry (%) 97 12/15/16 21:00 CBC, BMP 12/15/16 06:35 12/15/16 06:35 A/P: Current Active Problems Abdominal pain (Acute) Acute cholecystitis (Acute) Biliary colic (Acute) HTN (hypertension) (Acute) Sarcoidosis (Acute) s/p lap feli Doing well post op Continue current care Shyam Hathaway MD
--- NOTE | 2016-12-16 11:30 | PN ---
Progress Note (short form) - Note Progress Note: Surgery-Dr. Glover Patient seen and examined. Patient states she is feeling much better. She has some soreness around her umbilicus, but pain is controlled. She is tolerating her diet. She is ambulating, passing gas and urinating without issue. She denies fever, chills, nausea, vomiting. Last Vital Signs Temp Pulse Resp BP Pulse Ox 97.9 F 68 20 137/91 97 12/16/16 10:55 12/16/16 10:55 12/16/16 06:00 12/16/16 10:55 12/15/16 21:00 Exam: Gen: NAD, pleasant and cooperative Abd: soft, nondistended, minimal tenderness around umbilical port site incision , port site incisions c/d/i Problem List - Problems (1) Acute cholecystitis Assessment/Plan: POD#1 s/p laparoscopic cholecystectomy Patient tolerating diet Pain control with PO pain medication DC abx DC instructions to follow-up with Dr. Glover Code(s): K81.0 - ACUTE CHOLECYSTITIS
[2016-12-16] MEDS ORDERED: oxyCODONE HCL 5 MG TABLET PO PRN (11:37)
[2016-12-16] MEDS ORDERED: ACETAMINOPHEN 325 MG TABLET (FP) PO PRN (11:38)
[2016-12-16] MEDS ORDERED: IBUPROFEN 400 MG TABLET (FP) PO PRN (12:01)
[2016-12-16 14:00] VITALS: BP 149/91; PULSE 90; TEMP 98.8
--- NOTE | 2016-12-16 14:28 | PN ---
Teaching Attending Note Name of Resident: Vijaya Kong ATTENDING PHYSICIAN STATEMENT I saw and evaluated the patient. I reviewed the resident's note and discussed the case with the resident. I agree with the resident's findings and plan as documented. SUBJECTIVE: no fever or chills. Abd pain in periambilical area. no N/V . tolerated regular diet OBJECTIVE: NAD CV : RRR Lungs : CTAB ext : no edema Abd ; laparoscopic wounds in periambilical area nad RUQ . nl BS ASSESSMENT AND PLAN: 46 y/o lady with h/o HTN , who presented with abd pain , and was found to have acute cholecystitis . now s/p CCY POD 1 doing well , tolerated regular diet stop Abx , as no abscess or perforation was found . ibuprofen for pain at dc f/u with Dr. Ott cont her HTN meds .
--- NOTE | 2016-12-16 14:32 | DS ---
Physical Exam: SUBJECTIVE: Patient seen and examined Patient resting in bed. Day 1 s/p uneventful lap feli. Afebrile and hemodynamically stable. pain controlled with analgesia. + flatus no BM. tolerating regular diet. Denies f/c, n/v, chest pain, sob, leg pain, back pain. OBJECTIVE: Vital Signs Period Temp Pulse Resp BP Sys/Sutton Pulse Ox Last 24 Hr 97.9 F-98.8 F 68-90 18-20 127-149/74-91 97 PHYSICAL EXAM GENERAL: Awake, alert, and fully oriented, in no acute distress. HEAD: Normal with no signs of trauma. EYES: Pupils equal, round and reactive to light, extraocular movements intact, sclera anicteric, conjunctiva clear. EARS, NOSE, THROAT: Moist mucous membranes. NECK: supple without JVD, or masses. LUNGS: Breath sounds equal, clear to auscultation bilaterally. No wheezes, and no crackles. HEART: Regular rate and rhythm, normal S1 and S2 ABDOMEN: Soft, nondistended, present normal bowel sounds, mildly tender diffusely, no guarding, no rebound, no masses. surgical incisions intact and clean, No bleeding MUSCULOSKELETAL: No CVA tenderness. UPPER EXTREMITIES: 2+ pulses, warm, well-perfused. No peripheral edema. LOWER EXTREMITIES: 2+ pulses, warm, well-perfused. No calf tenderness. No peripheral edema. NEUROLOGICAL: Cranial nerves II-XII grossly intact. Normal speech. normal gait PSYCHIATRIC: Cooperative. Good eye contact. Appropriate mood and affect. SKIN: Warm, dry LABS Laboratory Results - last 24 hr 12/15/16 06:35 Iron 23 L TIBC 315 Iron Saturation 7 L HOSPITAL COURSE: Date of Admission:12/11/16 This is a 46 yo F with PMH of HTN and sarcoidosis (dx at [facility] biopsy 2004-stable ), who presents due to new onset RUQ abd pain and vomiting since last night. She has never had this kind of pain before. She has had many episodes of nonbloody, bilious vomiting. no other abdominal symptoms and normal BM. In ED patient is afebrile and hypertensive 180/96. Her pain was alleviated with analgesics. Initial GB US shown cholelithiasis w/o cholecystitis. Patient treated with ABX and IVF, evaluated by hunter and GI. Her pain persisted. repeat GB US shows acute cholecystitis and HIDA shows cystic duct obstruction, acute cholecystitis. patient underwent uneventful lap feli and was discharged home on POD2 Date of Discharge: 12/16/16 Minutes to complete discharge: 46 (na) Discharge Summary Reason For Visit: BILIARY COLIC Current Active Problems Abdominal pain (Acute) Acute cholecystitis (Acute) Biliary colic (Acute) HTN (hypertension) (Acute) Sarcoidosis (Acute) Condition: Good - Instructions Diet, Activity, Other Instructions: Dr Glover's Discharge Instructions Dear Sheila, Post Operative Instructions Physical activity Resume your normal everyday activity as tolerated no heavy lifting or exercise until seen by your surgeon. You may walk unlimited rosaline of and climb stairs. You may resume driving the car when you feel safe and comfortable behind the wheel. Wound care You may shower the day after surgery. Diet There are no dietary restrictions. Eat healthy, high-fiber foods. Drink 6 to 8 glasses of liquid each day. This will assist in keeping your bowels are regular. Pain management You may take Tylenol or acetaminophen or Ibuprofen (for example, Motrin, Advil etc.) Any pain prescription medication ordered should be taken as prescribed for moderate to severe pain. Call Dr. David for any of the following: Severe pain not relieved by medication Fever of 101 or higher Excessive bleeding or drainage on dressing Inability to urinate Call the office for an appointment in seven days. Referrals: Sara Orlando [Primary Care Provider] - Juan Glover [Staff Physician] - Disposition: HOME - Home Medications Comprehensive Discharge Medication List: Ambulatory Orders Lisinopril/Hydrochlorothiazide [Lisinopril-Hctz 10-12.5 mg Tab] 1 each PO DAILY 12/11/16 Ibuprofen [Motrin -] 800 mg PO Q8H PRN #50 tablet MDD 3 12/16/16 Problem List - Problems (1) Abdominal pain Code(s): R10.9 - UNSPECIFIED ABDOMINAL PAIN (2) HTN (hypertension) Code(s): I10 - ESSENTIAL (PRIMARY) HYPERTENSION (3) Sarcoidosis Code(s): D86.9 - SARCOIDOSIS, UNSPECIFIED (4) Biliary colic Code(s): K80.50 - CALCULUS OF BILE DUCT W/O CHOLANGITIS OR CHOLECYST W/O OBST (5) Acute cholecystitis Code(s): K81.0 - ACUTE CHOLECYSTITIS This patient is new to me today: No Emergency Visit: Yes ED Registration Date: 12/11/16 Care time: The patient presented to the Emergency Department on the above date and was hospitalized for further evaluation of their emergent condition. Critical Care patient: No - Discharge Referral Referred to [facility] Med P.C.: No
--- NOTE | 2016-12-16 15:08 | PATH ---
Surgical Pathology Report Patient Name: CARLOS VENTURA [facility]. Rec. #: [id number] /Age/Gender: 1970 (Age: 46) / F Account: [id number] Location: [address] [place] [address] Taken: 12/15/2016 Received: 12/15/2016 Reported: 12/16/2016 Physicians: Juan Glover M.D. Specimen(s) Received GALLBLADDER Clinical History Cholecystitis Final Diagnosis GALLBLADDER, CHOLECYSTECTOMY: ACUTE HEMORRHAGIC CHOLECYSTITIS AND CHOLELITHIASIS. Electronically Signed Miguel Ángel Putnam M.D. Gross Description Received in formalin, labeled "gallbladder" is a 12.0 x 3.5 x 3.3 cm gallbladder with a 0.2 cm in length portion of cystic duct attached. The outer surface is zapien-pink with focal defects and varies from smooth to shaggy. The lumen contains blood as well as numerous brown/yellow irregular choleliths ranging from 0.2-1.0 cm in greatest dimension. The mucosa is zapien-red and focally eroded. The wall of the gallbladder ranges from 0.1-0.7 cm in thickness. Measurement Supervisor sections are submitted in one cassette. /12/15/201612/15/2016
--- NOTE | 2016-12-17 11:05 | OP ---
DATE OF OPERATION: 12/15/2016 PREOPERATIVE DIAGNOSIS: Acute cholecystitis. POSTOPERATIVE DIAGNOSIS: Acute cholecystitis. PROCEDURE PERFORMED: Laparoscopic cholecystectomy. SURGEON: Juan Glover MD PRINTER REPAIR TECHNICIAN: STACIA Mendoza COMPLICATIONS: None. BLEEDING: Minimal. DISPOSITION: The patient tolerated the procedure well. FINDINGS: Acute cholecystitis. SPECIMENS: Gallbladder. INDICATIONS: This 46-year-old female was admitted several days ago with right upper quadrant abdominal pain. Diagnosis was confirmed by ultrasound and HIDA scan, and the patient was taken to the operating room for a laparoscopic cholecystectomy. DESCRIPTION OF PROCEDURE: In the operating room, she was placed in the supine position. After the induction of general anesthesia, she was prepped and draped in the usual sterile fashion. After the standard time-out was observed, the operation was begun and an infraumbilical incision performed with a scalpel and carried through the subcutaneous tissues in standard fashion. A standard Nita approach was used to enter the peritoneal cavity without any complications. At this point, with a 12-mm port in place and insufflation to a pressure of 15 mmHg, three other 5-mm ports were introduced -- one in the epigastrium and two in the right upper quadrant. The gallbladder was draped with omentum as an inflammatory response. The patient was positioned in a reverse Trendelenburg position. The omentum was reflected off the gallbladder taken down with electrocautery. The gallbladder was decompressed with a decompression needle, aspirated, then grasped and retracted superiorly and laterally in order to expose the infundibular region. Dissection of the infundibulum was performed with reflection of the peritoneum and the use of blunt dissection with the [place] dissector to expose the cystic duct. The cystic duct was relatively short and the cystic artery was difficult to identify at this point. The cystic duct was followed to its origin at the base of the common bile duct, which was clearly identified. At this point then the cystic duct was divided between Endo-clips. This allowed better exposure of the cystic artery, which was also very short and coming off the hepatic artery clearly visualized. It was again circumferentially dissected, ligated with Endo-clips and divided with Endoshears. The gallbladder was very thick-walled and there was some edema within the gallbladder wall. It was then at this point dissected off the liver bed with the use of cautery and care was taken to avoid injury to the liver bed. Dissection was carried in a careful fashion to separate the gallbladder from the liver bed. At this point then the peritoneal cavity was irrigated and suctioned, the right upper quadrant particularly. The liver bed was inspected for bleeding and final hemostasis achieved with cautery. At this point then the gallbladder was placed in an Endo Catch bag and removed through the umbilical incision, which had to be extended given the large size and stones within the gallbladder. Once removed, the patient was returned to a supine position. The fascia at the umbilical port was closed with 4 sutures of 0 Vicryl suture, and the skin at all port sites was closed with 4-0 Monocryl. Dermabond was applied. The patient was returned to the recovery room awake and alert, in stable condition. She tolerated the procedure well. Edward [id number]
== END 2016-12-16 15:38 | disposition home or self-care (01) | DRG 419 ==
LOC: JER 06:54 → JERBED 14:30 → J5S 15:44
PROVIDERS: ADMIT Internal Medicine; ATTEND Internal Medicine
PROC: 0FT44ZZ Resection of Gallbladder, Percutaneous Endoscopic Approach (ICD-10-PCS; principal; 2016-12-15 07:30)
DX: K80.00 Calculus of gallbladder with acute cholecystitis without obstruction (principal); D86.9 Sarcoidosis, unspecified; R10.11 Right upper quadrant pain; I16.0 Hypertensive urgency
CPT/HCPCS: 36415; 71010-TC; 76700-TC; 76705-TC; 76775-TC; 78226-TC; 80048; 80053; 80076; 81003; 81015; 82570; 82728; 83540; 83550; 83690; 83735; 84100; 84156; 84703; 85025; 85027; 85610; 86850; 86900; 86901; 87040; 88304-TC; 93005; 93010; 94760; 99284-25; A9537; J3480

== ENCOUNTER 2020-12-17 04:18 | Day surgery (SDC) | payer BC ==
[2020-12-12 08:56] VITALS: BMI 37.2
[2020-12-17] MEDS ORDERED: MIDAZOLAM HCL 2 MG/2 ML SINGLE DOSE VIAL ONE (08:58)
[2020-12-17] MEDS ORDERED: GLYCOPYRROLATE 0.2 MG/1 ML VIAL ONE (08:58)
[2020-12-17] MEDS ORDERED: KETOROLAC TROMETHAMINE 30 MG/1 ML VIAL ONE (09:23)
[2020-12-17] MEDS ORDERED: ONDANSETRON 4 MG/2 ML VIAL ONE (09:23)
[2020-12-17] MEDS ORDERED: LIDOCAINE HCL/PF 2% SDV 5ML VIAL ONE (09:23)
[2020-12-17] MEDS ORDERED: DEXAMETHASONE SOD PHOSPHATE 4 MG/1 ML VIAL ONE (09:23)
[2020-12-17] MEDS ORDERED: SUCCINYLCHOLINE CHLORIDE 200 MG/10 ML SYRINGE ONE (09:30)
[2020-12-17] MEDS ORDERED: PROPOFOL 20 ML ONE (09:34)
[2020-12-17] MEDS ORDERED: IBUPROFEN 800 MG/8 ML IJ IVPB PRN (10:20)
[2020-12-17] MEDS ORDERED: oxyCODONE HCL 5 MG TABLET PO PRN (10:20)
[2020-12-17] MEDS ORDERED: IBUPROFEN 600 MG TABLET (FP) PO PRN (10:20)
[2020-12-17] MEDS ORDERED: ONDANSETRON 4 MG/2 ML VIAL IVPUSH PRN (10:20)
[2020-12-17] MEDS ORDERED: ELECTROLYTE-148 SOLN 1,000 ML IV SCH (10:30)
[2020-12-17] MEDS ORDERED: LACTATED RINGERS SOLUTION 1,000 ML IV SCH (12:30)
[2020-12-17 13:15] VITALS: BP 144/81; PULSE 62; TEMP 98.2
== END 2020-12-17 13:30 | disposition home or self-care (01) ==
LOC: JASU-SURG 04:18
PROVIDERS: ATTEND Obstetrics & Gynecology
PROC: 0UDB7ZX Extraction of Endometrium, Via Natural or Artificial Opening, Diagnostic (ICD-10-PCS; 2020-12-17)
PROC: 0UBC8ZX Excision of Cervix, Via Natural or Artificial Opening Endoscopic, Diagnostic (ICD-10-PCS; principal; 2020-12-17 09:00)
PROC: 0UB98ZX Excision of Uterus, Via Natural or Artificial Opening Endoscopic, Diagnostic (ICD-10-PCS; 2020-12-17 09:00)
DX: N92.1 Excessive and frequent menstruation with irregular cycle (principal); D25.1 Intramural leiomyoma of uterus; N84.0 Polyp of corpus uteri; N84.1 Polyp of cervix uteri
CPT/HCPCS: 81025; 94760